=== PATIENT | male | born 1990 | race Caucasian/White ===

== ENCOUNTER 2019-03-09 01:37 | Inpatient (IN) | payer MEDICAID, SELFPAY ==
[2019-03-09 01:40] VITALS: BP 100/59; PULSE 74; RESP 14; TEMP 36.7; O2SAT 98
[2019-03-09] MEDS: LORazepam 2 MG/ML VIAL (02:02)
[2019-03-09] MEDS: Haloperidol 5 MG/ML VIAL (02:03)
--- NOTE | 2019-03-09 02:04 | W.ED.GENAD ---
Discharge Plan Disposition Patient Disposition: [facility] INPATIENT Condition: Stable Discharge Details Chief Complaint: PsychEval Clinical Impression: Schizoid personality disorder Primary Care Provider: Cornel Valenzuela ED Provider: Hammad Sampson Home Meds and New Rx's Prescriptions: No Action No Known Home Meds RF: 0 Medical Decision Making <Feroz Espinoza MD - Last Filed: 03/09/19 21:00> Patient here for mental health evaluation. Per police mother reports history of schizophrenia but not on any treatment other than self medicates with marijuana. Tonight became agitated, violent, loud. Police were eventually able to get him here. He is calm but clearly delusional, paranoid, hallucinating. Unable to reason or have any meaningful conversation with the patient. Could not get him to agree to stay willingly. I did not wish to physically restrain him and risk further agitation/violence. I was eventually able to convince him after a long conversation and period of time to let us give him injections of Haldol and Ativan. He is now sleeping. Mental health has arrived and she will look through mental health records to see if they have had any contact with him previously. There is a record in our computer from 2013 where he was actually paralyzed and intubated in the field for agitated/combative behavior. Subsequently thought to likely be related to synthetic marijuana. We will get EKG and laboratory studies at some point. We will get him undressed and paper down. CPSO is present at this time. 3:00 -mental health reviewed the records. Further discussion with [place] police officers. Patient's baseline is apparently paranoid delusions. What was out of the ordinary tonight was the aggressive, violent behavior. Patient is currently sleeping after Haldol and Ativan. Will hold overnight for reevaluation by mental health in the morning as well as having his parents come in in the morning to see if he is back to his normal baseline. If we are able to get labs without further agitation will do so. If not he has had labs, MRI, EEG in the past which have been okay. 07:45 -patient continues to sleep with no issues. Mental health to return this morning. Hopefully will be back to baseline to go home with parents. Care signed over to Dr. Sampson. Medical Records Medical records reviewed: Yes I reviewed the patient's medical records. Lab Data Lab results reviewed: Yes I reviewed the patient's lab results. <Hammad Sampson MD - Last Filed: 03/09/19 19:15> Patient has remained calm during his stay here. He does have paranoid thoughts on my exam otherwise no neuro findings or other findings to suggest underlying medical process. he apparently has been more and more agitated and given his paranoia did not feel he could go home and learned he was so agitated last night that the only way his father could get him to stand down from possibly hurting his mother was to point a gun at the patient. I filed an EE as I don't feel he is safe for d/c. Pt remains calm, walking unassisted. Second cert done and EE stands. Spoke with Dr. King who accepts for admission until psych bed is found Medical Records Medical records reviewed: Yes I reviewed the patient's medical records. Lab Data Lab results reviewed: Yes I reviewed the patient's lab results. HPI <Feroz Espinoza MD - Last Filed: 03/09/19 21:00> General Mode of arrival: ambulatory. Date/Time Provider Initiated Documentation: 03/09/19 02:03. Limitations to Documentation: other (paranoid delusional). Information obtained by: police and old records reviewed. HPI Narrative: Patient is brought in by police for mental health evaluation. Patient by report has history of schizophrenia. However, he does not see anybody in mental health nor does he take medications. He lives with his mother in [place]. Tonight he became extremely agitated, aggressive, loud. She became scared and called the police. Police report that he had caused significant damage to the home. He was screaming loudly and talking about satellites, terrorism, [employer], [employer]. He reports that someone has been trying to kill his family for 4 years. He reports that someone has hacked to [employer] satellite is changed everybody's records. At one point during my interview with him he clearly was speaking to individuals not present and having a conversation with them. Per the police mother reports that he typically self medicates with marijuana. Related Data Home Medications Medication Instructions Recorded Confirmed Unknown [No Known Home Meds] 07/22/18 03/09/19 Allergies Allergy/AdvReac Type Severity Reaction Status Date / Time naldecon Allergy Intermediate unknown Uncoded 03/09/19 07:03 General Stated Complaint: PsychEval LAURIE: 2 Review of Systems <Feroz Espinoza MD - Last Filed: 03/09/19 21:00> Review of Systems Unobtainable due to mental condition PFS <Feroz Espinoza MD - Last Filed: 03/09/19 21:00> Family History Mother No problems noted. Father Heart disease a-fib Sister No problems noted. Brother No problems noted. Grandfather Heart disease Grandfather Stroke Grandmother Hyperlipidemia Grandmother No problems noted. Sister No problems noted. Brother No problems noted. Social History Smoking/Tobacco Use Status: Current-Occasional Drug use: Occasionally Substance use type: marijuana Do you feel safe at home: No Exam <Feroz Espinoza MD - Last Filed: 03/09/19 21:00> Narrative Exam Narrative: Const: Thin tall male in no physical distress. HEENT: NC/AT. Normal facial exam. Neck: Supple. Trachea midline. Lungs: Normal respiratory effort. Neuro: Awake and alert, knows who he is and where he is. CN grossly in tact. No focal deficit. Ext: No C/C/E. Skin: Warm and dry without rash. Psych: Patient is paranoid, delusional, speaking and interacting with people not present. Continuously repeats that he needs to speak to higher ups, requesting [facility], [employer], [employer]. Course <Feroz Espinoza MD - Last Filed: 03/09/19 21:00> Respiratory Effort 03/09/19 01:40 Sign Out <Feroz Espinoza MD - Last Filed: 03/09/19 21:00> Sign Out Data: Sign Out Comment: pending eval by mental health Last updated by Feroz Espinoza MD at 03/09/19 07:48
--- NOTE | 2019-03-09 03:43 | CMSP_ITS ---
- If Service Date Differs Date of service: 03/09/19 Time of Service: 03:44 Care Management Safety Plan Jose is a 28 year old man brought to the ED by police . He is known to have schizophrenia, untreated except for self medication with marijuana.Jose's mother called the police when he became loud, agitated and violent. In the ED he was unable to engage in a meaningful conversation. He was found to be paranoid, delusional and having hallucinations. The ED physician was able to convince him to allow injections of Haldol and Ativan and he fell asleep. He has a CPSO with him. [facility] Crisis was called in to see patient but could not evaluate him because he was asleep. They will return in the morning to assess him. His mother will also be asked to come in the morning to see if he has returned to baseline. CM will respond to ED to assess patient after patient has been medically cleared and assessed by screener. If screener deems patient meets criteria for psychiatric stabilization CM will facilitate interdepartmental huddle with [facility] screener for safety planning considerations and meet with patient to review [facility] policy and safety plan, establish individual wishes for treatment and maintain patient rights. In the interim; please note safety plan below to guide patient care while awaiting further assessment in the ED. SAFETY PLAN: 1. Will remain on suicide precautions and in paper clothes. 2. Will remain in room under direct supervision of one-on-one staff at all times provided by VICENTE, TIN PLATER home advisor. 3. May have paper cups, plates, finger foods as well as a cardboard spoon with which to eat meals. 4. Follow [facility] Management of the Admitted Behavioral Health Patient policy. 5. Comfort bath system only. 6. No personal belongings 7. Mother may visit in the morning. 8. Phone contact limited to Mother. 9. Due to VOLUNTARY status, if patient wishes to leave [facility], the [facility] side door worker must be contacted to re-evaluate patient prior to patient exiting the building. If deemed appropriate for inpatient psychiatric care, safety plan will be established with patient, and care team, to adhere to patient goals, identify restrictions based on behavioral status, address nutrition, and determine allowed personal belongings, tools for hygiene and personal care. As well plan will determine level of activity including ambulation, level of supervision, visitors, and determine privileges based on level of acuity, behaviors and level of engagement by patient.
--- NOTE | 2019-03-09 09:07 | NUR.NOTE ---
Nursing Note: Report received from Shelby Ku RN at this time. Care assumed.
--- NOTE | 2019-03-09 09:54 | NUR.NOTE ---
Nursing Note: Pt consented for lab work, drawn by this nurse without incident.
[2019-03-09 10:04] LABS: Abs Immature Grans 0.01 k/cumm (0.0-0.09); Absolute Basophil Count 0.07 k/cumm (0.0-0.2); Absolute Eosinophil Count 0.54 k/cumm (0.0-0.7); Absolute Monocyte Count 0.65 k/cumm (0.11-0.7); Absolute Neutrophil Count 4.22 k/cumm (1.2-6.7); Basophils % 0.9; Eosinophils % 7.2; HCT 48.7 % (40.0-50.0); HGB 16.3 g/dL (13.5-17.5); Immature Grans % 0.1; Lymphocytes % 26.7; Mean Corp. HGB Concentration 33.5 g/dL (32.0-36.0); Mean Corpuscular Hemoglobin 30.5 pg (27.0-33.0); Mean Corpuscular Volume 91.2 fL (80-95); Mean Platelet Volume 10.3 fL (8.0-11.0); Monocytes % 8.7; Neutrophils % 56.4; Platelet Count 194 x1000/uL (130-400); RBC 5.34 m/cumm (4.50-6.00); White Blood Cell Count 7.49 k/cumm (4.4-10.8)
[2019-03-09 10:18] LABS: Bilirubin Negative (Negative); Blood Negative (Negative); Clarity Clear (Clear); Glucose Negative (Negative); Ketones Negative (Negative); Leukocyte Esterase Negative (Negative); Nitrite Negative (Negative); Specific Gravity 1.025 (1.005-1.025); Urobilinogen 0.2 EU/dL (Up TO 0.2)
[2019-03-09 10:20] LABS: Salicylate 3.4 mg/dL (2.8-20.0)
[2019-03-09 10:23] LABS: ALT 28 U/L (16-63); AST 31 U/L (15-37); Albumin 3.4 g/dL (3.4-5.0); Alkaline Phosphatase 73 U/L (46-116); Anion Gap 8.7 mmol/L (3-11); BUN 19 mg/dL (7-18); Bilirubin, Total 0.3 mg/dL (0.2-1.0); CO2 27.3 mmol/L (21.0-32.0); CREATININE 0.82 mg/dL (0.70-1.30); Calcium 8.7 mg/dL (8.5-10.1); Chloride 107 mmol/L (98-107); Glucose 94 mg/dL (70-100); Potassium 4.1 mmol/L (3.5-5.1); Sodium 143 mmol/L (136-145); TSH (W/Ref FT4) 1.31 uIU/mL (0.36-3.74); Total Protein 6.7 g/dL (6.4-8.2)
[2019-03-09 10:28] LABS: Acetaminophen < 2 ug/mL (10-30)
[2019-03-09 10:35] LABS: ETHANOL BLOOD < 3.0 mg/dL (<3)
[2019-03-09 10:36] LABS: *AMPHETAMINES SCREEN URINE Negative (Negative); *BARBITURATES SCREEN URINE Negative (Negative); *BENZODIAZEPINES SCREEN URINE Negative (Negative); Cannabinoids THC POSITIVE (Negative); Cocaine Screen,Urine Negative (Negative); METHADONE URINE SCREEN Negative (Negative); OPIATES URINE SCREEN Negative (Negative)
[2019-03-09 10:37] LABS: Tricyclic Antidepressants Negative (Negative)
--- NOTE | 2019-03-09 11:44 | PDOC.MHCN_ITS ---
Date of service: 03/09/19 Time of Service: 11:45 Mental Health Crisis Note Presenting Issue How did you arrive at the ED and why did you come: Police bring patient to the ED after he becomes highly agitated and aggressive at home. Precipitating Factors Patient denies current SI and HI but the question has to be repeated several times before he answers by shaking his head no. He is able to say that he is at the hospital and that police brought him here but cannot say why he is here. He shares his belief that people on satellites are watching him. Disposition BEHAVIOR: Uncooperative - either blankly stares at me and does not answer questions asked of him or closes his eyes and ignores the questions. EYE CONTACT: Poor. MOOD: Reports his mood as ok. AFFECT: Flat, paranoid. APPETITE: Unknown. SLEEP(trouble falling/staying asleep: Mother reports that he goes 24 to 48 hours without sleep, then sleeps for 18+ hours. Plan Patient is placed on EE status. There are no available beds at this time, so he will remain at [facility] while [facility] continues to seek placement. Dr. Moralez is consulted with this plan and he is in agreement. Signature Clinician's Name/Title: Jessica Jim BA, [facility] Ship'S Captain
--- NOTE | 2019-03-09 11:59 | NUR.NOTE ---
Nursing Note: Food tray ordered for lunch, precaution tray. Participated in huddle. Please see CM notes for details.
--- NOTE | 2019-03-09 12:36 | NUR.NOTE ---
Nursing Note: Attempted to call pt's mother (allowed per care plan) as requested by pt. Assisted calling number provided on pt's chart, no answer x 2 calls. Pt states he wants to leave. Pt aware that the decision is not within this nurse's power, and seems to accept that. Pt acknowledges an understanding that he is here for mental health evaluation and that the process can be lengthy. Pt declines offered PO lorazepam in calm and reasonable manner. Pt eats approx 1/4 of lunch provided and chooses to return to bed. Pt also offered hygiene opportunity and change of clothes, pt declines. This nurse called 's office extension to verify that pt had been wanded overnight for sharp/metal objects. states this occurred at approx 0230 according to log.
[2019-03-09 14:32] VITALS: BP 102/66; PULSE 66; RESP 16; TEMP 36.4; O2SAT 98
--- NOTE | 2019-03-09 14:37 | CMPROGNOTE_ITS ---
- If Service Date Differs Date of service: 03/09/19 Time of Service: 14:37 Care Management Progress Note Jose is a 28 year old man brought to the ED by police . He is known to have schizophrenia, untreated except for self medication with marijuana.Jose's mother called the police when he became loud, agitated and violent. In the ED he was unable to engage in a meaningful conversation. He was found to be paranoid, delusional and having hallucinations. The ED physician was able to convince him to allow injections of Haldol and Ativan and he fell asleep. He has a CPSO with him. [facility] Crisis was called in to see patient but could not evaluate him because he was asleep. They returned this morning and an EE was completed. Jose remains in the Emergency Department. He slept most of the day per ED staff. He woke up a few times and was cooperative and calm. Shortly before 6 pm, Jose woke up and became more agitated. He was asking for his shoes and appeared to be seeking an exit. A second certification was completed at 181. Jose will remain at [facility] in Involuntary status. Per MD conducting the 2nd certification, Jose is psychotic and delusional and is experiencing auditory hallucinations.He did not state that he wanted to hurt himself or others, however because of the degree of his acute paranoid psychosis, remains a risk to self and others. INVOLUNTARY FOR INPATIENT PSYCHIATRIC STABILIZATION. Patient is unable to demonstrate appropriate coping and communication skills and is unable to engage in meaningful conversation. . Safety plan has been established with patient and care team, to adhere to p atient goals, identify restrictions based on behavioral status, address nutrition, and determine allowed personal belongings, tools for hygiene and personal care. Determine level of activity including ambulation, level of supervision, visitors, and determine privileges based on behaviors and level of engagement by patient. SAFETY PLAN: 1. Will remain on suicide precautions. In Paper Clothes 2. Will remain in room under direct supervision of one-on-one staff at all times provided by CPSO; VICENTE, LISBETH woodworking machine setter. 3. May have paper cups, plates, finger foods as well as a metal spoon with which to eat meals. [facility] staff will be responsible for accounting of utensils after meals. 4. Follow [facility] Management of the Admitted Behavioral Health Patient policy. 5. Comfort bath system only. 6. No personal belongings 7. Visitors- Parents and brother may visit at the discretion of nursing staff. 8. Activities: May watch TV when available. 9. Bathroom privileges with CPSO in attendance 10. Phone:parents and brother at nursing discretion. Patient is currently involuntarily at [facility] and seeking inpatient admission when a bed becomes available. [facility] Frontline Respiratory Therapy Technician will continue seeking placement. Please contact the Veterinary Practice Manager Integration Technician ([phone]) and [facility] Respiratory Therapy Technician ([phone]) for any needed changes in the Safety Plan. Safety p shell has been provided to interdepartmental care team.
--- NOTE | 2019-03-09 15:41 | NUR.NOTE ---
Nursing Note: Per care management, second cert should be done between 1730 and 1830 chang. aware.
--- NOTE | 2019-03-09 18:47 | NUR.NOTE ---
Nursing Note: 1814 late entry: during meditech code black downtime: Second cert began at 1814, pt assisted with laptop by post anesthesia care unit nurse.
--- NOTE | 2019-03-09 19:56 | CMSP_ITS ---
- If Service Date Differs Date of service: 03/09/19 Time of Service: 19:56 Care Management Safety Plan INVOLUNTARY FOR INPATIENT PSYCHIATRIC STABILIZATION. Patient is unable to demonstrate appropriate coping and communication skills and is unable to engage in meaningful conversation. . Safety plan has been established with patient and care team, to adhere to patient goals, identify restrictions based on behavioral status, address nutrition, and determine allowed personal belongings, tools for hygiene and personal care. Determine level of activity including ambulation, level of supervision, visitors, and determine privileges based on behaviors and level of engagement by patient. SAFETY PLAN: 1. Will remain on suicide precautions. In Paper Clothes 2. Will remain in room under direct supervision of one-on-one staff at all times provided by CPSO; VICENTE, E TAILER laborer pole crew. 3. May have paper cups, plates, finger foods as well as a metal spoon with which to eat meals. [facility] staff will be responsible for accounting of utensils after meals. 4. Follow [facility] Management of the Admitted Behavioral Health Patient policy. 5. Comfort bath system only. 6. No personal belongings 7. Visitors- Parents and brother may visit at the discretion of nursing staff. 8. Activities: May watch TV when available. 9. Bathroom privileges with CPSO in attendance 10. Phone:parents and brother at nursing discretion. Patient is currently involuntarily at [facility] and seeking inpatient admission when a bed becomes available. [facility] Frontline Planning Engineer will continue seeking placement. Please contact the Consolidator Printed Circuit Board Designer ([phone]) and [facility] Planning Engineer ([phone]) for any needed changes in the Safety Plan. Safety plan has been provided to interdepartmental care team.
--- NOTE | 2019-03-09 20:01 | NUR.NOTE ---
Nursing Note: Report given to Arline MARES. Bed to be ready by approx 2029. Report given early to ensure continuity of care. Care transferred to Awilda Haro RN.
[2019-03-09 21:14] VITALS: BP 124/74; PULSE 61; RESP 18; TEMP 37; O2SAT 95
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
--- NOTE | 2019-03-10 00:23 | NUR.NOTE ---
Patient admitted to the med-surg unit with know history of schizoid personality disorder. Pt was brought to the emergency room by the [facility] police because he thinks that his country is killing people and he wants to talk to the [place] pwople. Parents gave information in the ER that pt tried to kick their bedroom door and they had to locked themselves in the bedroom for safety. Pt was also stating that the government is watching him through their satellites. Pt parents informed the police that he's self medicating with marijuana. He was willing to be assessed, also state he is hearing many voices in his head but was not willing to share what the voices were saying to him. He denies having any suicidal ideation or any plans of hurting anyone. He was made comfortable in bed and he requested for the lights to be turned off because he is feeling very tired. Patient is a very poor historian at this time.
--- NOTE | 2019-03-10 09:40 | CMSP_ITS ---
Care Management Safety Plan INVOLUNTARY FOR INPATIENT PSYCHIATRIC STABILIZATION. Per report, Jose is more verbal this morning. He is describing disturbing electronic stimuli/communication and identifies this happening through electronic devices such as the television and equipment. He is eating, taking meds appropriately and engaging verbally. He is seen pacing around the room and speaking out loud when alone. He has slept often throughout his stay thus far as well. Safety plan has been established with patient and care team, to adhere to patient goals, identify restrictions based on behavioral status, address nutrition, and determine allowed personal belongings, tools for hygiene and personal care. Determine level of activity including ambulation, level of supervision, visitors, and determine privileges based on behaviors and level of engagement by patient. Huddle participants included SUZAN Negrete, Jessica, JUAN JOSE, Maricruz SAFETY PLAN: 1. Will remain on suicide precautions. Permitted to wear his own clothes. 2. Will remain in room under direct supervision of one-on-one staff at all times provided by [employer]; VICENTE, BEHAVIORAL HEALTH THERAPIST neuroscience director na. 3. May have paper cups, plates, finger foods. 4. Follow [facility] Management of the Admitted Behavioral Health Patient policy. 5. Comfort bath system, able to use shower room with escort at RN discretion . 6. No personal belongings permitted at this time. 7. Visitors- limited to parents and brother at discretion of nursing staff. 8. Activities: permitted television if he requests-at RN discretion due to electronic devices previously causing escalation. 9. Phone: parents and brother at RN discretion. Patient is currently involuntarily at [facility] and seeking inpatient admission when a bed becomes available. [facility] Frontline Chain Forming Machine Operator will continue seeking placement. Please contact the Document Improvement Specialist Business Dean ([phone]) and [facility] Chain Forming Machine Operator ([phone]) for any needed changes in the Safety Plan. Safety plan has been provided to interdepartmental care team.
--- NOTE | 2019-03-10 09:42 | CMPROGNOTE_ITS ---
Care Management Progress Note 0994 JUAN JOSE Lopez and Chavo Gravity Prospecting Observer from [facility] arrived to see Jose. Referrals were faxed to [facility] and Eric at [email or web address] request. CM contacted BR: [phone], admissions reported at 1309 that referral was received and was still currently under review. [facility] [phone]-Raphael stated Dr. Hernandez was currently reviewing and a determination had not yet been made. JUAN JOSE Lopez [facility] called to report both facilities were reviewing and [facility] would provide updates when available.
--- NOTE | 2019-03-10 09:42 | PDOC.CMPRO ---
Care Management Progress Note 0955 JUAN JOSE Lopez and Chavo Director Of Student Affairs from [facility] arrived to see Jose. Referrals were faxed to [facility] and Eric at [email or web address] request. CM contacted BR: [phone], admissions reported at 1309 that referral was received and was still currently under review. [facility] [phone]-Raphael stated Dr. Hernandez was currently reviewing and a determination had not yet been made. JUAN JOSE Lopez [facility] called to report both facilities were reviewing and [facility] would provide updates when available.
--- NOTE | 2019-03-10 10:44 | PDOC.MHPN2 ---
Date of service: 03/10/19 Time of Service: 10:45 Mental Health Progress Note Progress Note: Presenting Issue: Jose remains at [facility] on involuntary status. He first arrived at the hospital during the flight service agent hours of 03/09/19 after becoming highly agitated and aggressive at home. Precipitating Factors: Jose is reported by family members to have a diagnosis of schizophrenia. He, however, is not currently on any medications and is not being followed by a psychiatrist. Jose has a history of drug use and reportedly self-medicates with marijuana. He is currently experiencing delusions and paranoia, believing that satellite people are watching him. He is also having auditory hallucinations and is witnessed responding to internal stimuli. Since being at [facility], Jose has been calm and cooperative. He has been sleeping and eating well and is agreeable to taking medication. Disposition * Behavior: Cooperative. *Eye Contact: Poor. Jose is constantly moving around his hospital room and is unable to maintain eye contact. *Mood: Guarded, suspicious. *Affect: Paranoid. *Appetite: Good. *Sleep(troubel falling/staying asleep): Good. Plan(please elaborate and include that physician is consulted with plan and/or placement): Plan is for Jose to remain at [facility] on EE status while [facility] continues to seek a placement for him. Referrals are faxed to [facility] and [facility] today. Clinician's Name , Title, and Signature: Jessica Jim BA, [facility], [facility] Concierge Receptionist Make sure that you are photocopying and submitting this to [facility] records Dept. to be scanned into chart.
[2019-03-10 15:56] VITALS: BP 131/74; PULSE 74; RESP 17; TEMP 36.7; O2SAT 97
--- NOTE | 2019-03-10 16:16 | PGE_ITS ---
Date of Service Date of service: 03/10/19 Time of Service: 16:16 Assessment and Plan (1) Schizophrenia, acute: Start date: 03/10/19 Start time: 16:19 Current visit: Yes Status: Acute Slept all night, cooperative at this time. Awaiting a bed. 1:1 sitter has not required haldol or ativan. Continue to monitor and find placement. Subjective Patient reports: other Interval history since last seen: Cooperative but not making sense, when asked questions just laughs without cause. When asked why laughing states has nothing do to with why I am here just the president and HARINDER; and continues to laugh. M akes very little eye contact and speaks very quietly. Exam Const General: cooperative and No well groomed Orientation: other (psychotic break) Limitations: behavioral limitations Neck Neck: normal visual inspection Lymphatic: no lymphadenopathy noted Resp Effort & Inspection: normal respiratory effort Auscultation: clear to auscultation bilaterally Cardio Jugular venous pressure: no JVD Palpation: normal PMI Rate: regular rate Rhythm: regular rhythm Heart Sounds: S1 normal and S2 normal GI Inspection: normal to inspection Palpation: soft Percussion: normal to percussion Auscultation: normal bowel sounds Back/Spine/Pelvis Back: no CVA tenderness Skin General skin exam: no rashes or lesions noted Rashes: no rashes Neuro General: other Psych Appearance: disheveled Mental Status: other Mood: other Thought Process: flight of ideas and illogical Thought Content: delusions Insight: poor Judgment: poor Objective Objective Clinical Data: Vital Signs Temperature 36.7 C 03/10/19 15:56 Temperature Source Tympanic 03/10/19 15:56 Pulse 74 03/10/19 15:56 Pulse Rhythm Regular 03/10/19 09:10 Respiratory Rate 17 03/10/19 15:56 Respiratory Effort 03/10/19 09:10 Respiratory Depth Normal 03/10/19 09:10 Respiratory Pattern Normal 03/10/19 09:10 Blood Pressure 131/74 03/10/19 15:56 Pulse Oximetry 97 03/10/19 15:56 Oxygen Delivery Method Room Air 03/10/19 15:56 Oxygen Flow Rate 0 03/10/19 15:56 Pain Level 0 03/09/19 14:32 Laboratory Results WBC 7.49 k/cumm (4.4-10.8) 03/09/19 09:54 RBC 5.34 m/cumm (4.50-6.00) 03/09/19 09:54 Hgb 16.3 g/dL (13.5-17.5) 03/09/19 09:54 Hct 48.7 % (40.0-50.0) 03/09/19 09:54 MCV 91.2 fL (80-95) 03/09/19 09:54 MCH 30.5 pg (27.0-33.0) 03/09/19 09:54 MCHC 33.5 g/dL (32.0-36.0) 03/09/19 09:54 RDW 13.0 % (11.8-14.1) 03/09/19 09:54 Plt Count 194 x1000/uL (130-400) 03/09/19 09:54 MPV 10.3 fL (8.0-11.0) 03/09/19 09:54 Immature Gran % 0.1 03/09/19 09:54 56.4 03/09/19 09:54 Cancelled 03/09/19 02:03 26.7 03/09/19 09:54 Atypical Lymphs % Cancelled 03/09/19 02:03 8.7 03/09/19 09:54 7.2 03/09/19 09:54 0.9 03/09/19 09:54 Cancelled 03/09/19 02:03 Cancelled 03/09/19 02:03 Cancelled 03/09/19 02:03 Absolute Neutrophils 4.22 k/cumm (1.2-6.7) 03/09/19 09:54 Absolute Lymphocytes 2.00 k/cumm (1.2-3.4) 03/09/19 09:54 Absolute Monocytes 0.65 k/cumm (0.11-0.7) 03/09/19 09:54 Absolute Eosinophils 0.54 k/cumm (0.0-0.7) 03/09/19 09:54 Absolute Basophils 0.07 k/cumm (0.0-0.2) 03/09/19 09:54 Nucleated RBCs Cancelled 03/09/19 02:03 Cancelled 03/09/19 02:03 Cancelled 03/09/19 02:03 RBC Morphology Cancelled 03/09/19 02:03 Cancelled 03/09/19 02:03 Cancelled 03/09/19 02:03 Cancelled 03/09/19 02:03 Cancelled 03/09/19 02:03 Cancelled 03/09/19 02:03 Cancelled 03/09/19 02:03 Cancelled 03/09/19 02:03 Cancelled 03/09/19 02:03 Cancelled 03/09/19 02:03 Cancelled 03/09/19 02:03 Cancelled 03/09/19 02:03 Cancelled 03/09/19 02:03 Cancelled 03/09/19 02:03 Cancelled 03/09/19 02:03 Acanthocytes (Spur) Cancelled 03/09/19 02:03 Cancelled 03/09/19 02:03 Sodium 143 mmol/L (136-145) 03/09/19 09:54 Potassium 4.1 mmol/L (3.5-5.1) 03/09/19 09:54 Chloride 107 mmol/L (98-107) 03/09/19 09:54 Carbon Dioxide 27.3 mmol/L (21.0-32.0) 03/09/19 09:54 8.7 mmol/L (3-11) 03/09/19 09:54 BUN 19 mg/dL (7-18) H 03/09/19 09:54 0.82 mg/dL (0.70-1.30) 03/09/19 09:54 >= 60.00 (mL/min/1.73m2) 03/09/19 09:54 Glucose 94 mg/dL (70-100) 03/09/19 09:54 Calcium 8.7 mg/dL (8.5-10.1) 03/09/19 09:54 0.3 mg/dL (0.2-1.0) 03/09/19 09:54 AST 31 U/L (15-37) 03/09/19 09:54 ALT 28 U/L (16-63) 03/09/19 09:54 73 U/L (46-116) 03/09/19 09:54 6.7 g/dL (6.4-8.2) 03/09/19 09:54 3.4 g/dL (3.4-5.0) 03/09/19 09:54 TSH 1.31 uIU/mL (0.36-3.74) 03/09/19 09:54 Yellow (Yellow) 03/09/19 10:10 Clear (Clear) 03/09/19 10:10 6.0 (5-8) 03/09/19 10:10 Ur Specific [place] 1.025 (1.005-1.025) 03/09/19 10:10 Negative mg/dL (Negative) 03/09/19 10:10 Negative mg/dL (Negative) 03/09/19 10:10 Negative (Negative) 03/09/19 10:10 Negative (Negative) 03/09/19 10:10 Negative (Negative) 03/09/19 10:10 0.2 EU/dL (Up TO 0.2) 03/09/19 10:10 Ur Leukocyte Esterase Negative (Negative) 03/09/19 10:10 Negative mg/dL (Negative) 03/09/19 10:10 Salicylates 3.4 mg/dL (2.8-20.0) 03/09/19 09:54 Negative (Negative) 03/09/19 10:10 Negative (Negative) 03/09/19 10:10 Acetaminophen < 2 ug/mL (10-30) L 03/09/19 09:54 Ur Barbiturates Screen Negative (Negative) 03/09/19 10:10 Ur Tricyclics Screen Negative (Negative) 03/09/19 10:10 Ur Amphetamines Screen Negative (Negative) 03/09/19 10:10 U Benzodiazepines Scrn Negative (Negative) 03/09/19 10:10 Negative (Negative) 03/09/19 10:10 Ur THC Screen Positive (Negative) 03/09/19 10:10 Ethyl Alcohol < 3.0 mg/dL (<3) 03/09/19 09:54
[2019-03-11 06:42] VITALS: BP 117/68; PULSE 53; RESP 18; TEMP 36.7; O2SAT 98
--- NOTE | 2019-03-11 12:11 | W.PM.PROGNOT ---
Date of Service Date of service: 03/11/19 Time of Service: 12:11 Assessment and Plan (1) Schizophrenia, acute: Start date: 03/11/19 Start time: 12:12 Current visit: Yes Status: Acute Continues to avoid eye contact. Pacing around room smiling. Laughing when asked questions. Awaiting bed placement at this time. 1:1 sitter. (2) DVT prophylaxis: Start date: 03/11/19 Start time: 12:11 Current visit: Yes Status: Acute Not indicated in a 28 y.o M. Ambulatory around room. Subjective Patient reports: no new complaints Interval history since last seen: Still awaiting bed placement at this time. Exam Const General: cooperative and No well groomed Orientation: other (psychotic break) Limitations: behavioral limitations Neck Neck: normal visual inspection Lymphatic: no lymphadenopathy noted Resp Effort & Inspection: normal respiratory effort Auscultation: clear to auscultation bilaterally Cardio Jugular venous pressure: no JVD Palpation: normal PMI Rate: regular rate Rhythm: regular rhythm Heart Sounds: S1 normal and S2 normal GI Inspection: normal to inspection Palpation: soft Percussion: normal to percussion Auscultation: normal bowel sounds Back/Spine/Pelvis Back: no CVA tenderness Skin General skin exam: no rashes or lesions noted Rashes: no rashes Neuro General: other Psych Appearance: disheveled Mental Status: other Mood: other Thought Process: flight of ideas and illogical Thought Content: delusions Insight: poor Judgment: poor Objective Objective Clinical Data: Vital Signs Temperature 36.7 C 03/11/19 06:42 Temperature Source Skin 03/11/19 06:42 Pulse 53 L 03/11/19 06:42 Pulse Rhythm Regular 03/11/19 08:11 Respiratory Rate 18 03/11/19 06:42 Respiratory Effort 03/11/19 08:11 Respiratory Depth Normal 03/11/19 08:11 Respiratory Pattern Normal 03/11/19 08:11 Blood Pressure 117/68 03/11/19 06:42 Pulse Oximetry 98 03/11/19 06:42 Oxygen Delivery Method Room Air 03/11/19 06:42 Oxygen Flow Rate 0 03/11/19 06:42 Pain Level 0 03/11/19 08:11 Comment 03/11/19 06:42 Intake & Output 03/10/19 03/11/19 03/11/19 23:59 11:59 23:59 Intake Total 440 / 440 240 / 240 Balance 440 / 440 240 / 240 Intake: Oral 440 / 440 240 / 240 Other: Voiding Methods Toilet Laboratory Results WBC 7.49 k/cumm (4.4-10.8) 03/09/19 09:54 RBC 5.34 m/cumm (4.50-6.00) 03/09/19 09:54 Hgb 16.3 g/dL (13.5-17.5) 03/09/19 09:54 Hct 48.7 % (40.0-50.0) 03/09/19 09:54 MCV 91.2 fL (80-95) 03/09/19 09:54 MCH 30.5 pg (27.0-33.0) 03/09/19 09:54 MCHC 33.5 g/dL (32.0-36.0) 03/09/19 09:54 RDW 13.0 % (11.8-14.1) 03/09/19 09:54 Plt Count 194 x1000/uL (130-400) 03/09/19 09:54 MPV 10.3 fL (8.0-11.0) 03/09/19 09:54 Immature Gran % 0.1 03/09/19 09:54 56.4 03/09/19 09:54 Cancelled 03/09/19 02:03 26.7 03/09/19 09:54 Atypical Lymphs % Cancelled 03/09/19 02:03 8.7 03/09/19 09:54 7.2 03/09/19 09:54 0.9 03/09/19 09:54 Cancelled 03/09/19 02:03 Cancelled 03/09/19 02:03 Cancelled 03/09/19 02:03 Absolute Neutrophils 4.22 k/cumm (1.2-6.7) 03/09/19 09:54 Absolute Lymphocytes 2.00 k/cumm (1.2-3.4) 03/09/19 09:54 Absolute Monocytes 0.65 k/cumm (0.11-0.7) 03/09/19 09:54 Absolute Eosinophils 0.54 k/cumm (0.0-0.7) 03/09/19 09:54 Absolute Basophils 0.07 k/cumm (0.0-0.2) 03/09/19 09:54 Nucleated RBCs Cancelled 03/09/19 02:03 Cancelled 03/09/19 02:03 Cancelled 03/09/19 02:03 RBC Morphology Cancelled 03/09/19 02:03 Cancelled 03/09/19 02:03 Cancelled 03/09/19 02:03 Cancelled 03/09/19 02:03 Cancelled 03/09/19 02:03 Cancelled 03/09/19 02:03 Cancelled 03/09/19 02:03 Cancelled 03/09/19 02:03 Cancelled 03/09/19 02:03 Cancelled 03/09/19 02:03 Cancelled 03/09/19 02:03 Cancelled 03/09/19 02:03 Cancelled 03/09/19 02:03 Cancelled 03/09/19 02:03 Cancelled 03/09/19 02:03 Acanthocytes (Spur) Cancelled 03/09/19 02:03 Cancelled 03/09/19 02:03 Sodium 143 mmol/L (136-145) 03/09/19 09:54 Potassium 4.1 mmol/L (3.5-5.1) 03/09/19 09:54 Chloride 107 mmol/L (98-107) 03/09/19 09:54 Carbon Dioxide 27.3 mmol/L (21.0-32.0) 03/09/19 09:54 8.7 mmol/L (3-11) 03/09/19 09:54 BUN 19 mg/dL (7-18) H 03/09/19 09:54 0.82 mg/dL (0.70-1.30) 03/09/19 09:54 >= 60.00 (mL/min/1.73m2) 03/09/19 09:54 Glucose 94 mg/dL (70-100) 03/09/19 09:54 Calcium 8.7 mg/dL (8.5-10.1) 03/09/19 09:54 0.3 mg/dL (0.2-1.0) 03/09/19 09:54 AST 31 U/L (15-37) 03/09/19 09:54 ALT 28 U/L (16-63) 03/09/19 09:54 73 U/L (46-116) 03/09/19 09:54 6.7 g/dL (6.4-8.2) 03/09/19 09:54 3.4 g/dL (3.4-5.0) 03/09/19 09:54 TSH 1.31 uIU/mL (0.36-3.74) 03/09/19 09:54 Yellow (Yellow) 03/09/19 10:10 Clear (Clear) 03/09/19 10:10 6.0 (5-8) 03/09/19 10:10 Ur Specific [place] 1.025 (1.005-1.025) 03/09/19 10:10 Negative mg/dL (Negative) 03/09/19 10:10 Negative mg/dL (Negative) 03/09/19 10:10 Negative (Negative) 03/09/19 10:10 Negative (Negative) 03/09/19 10:10 Negative (Negative) 03/09/19 10:10 0.2 EU/dL (Up TO 0.2) 03/09/19 10:10 Ur Leukocyte Esterase Negative (Negative) 03/09/19 10:10 Negative mg/dL (Negative) 03/09/19 10:10 Salicylates 3.4 mg/dL (2.8-20.0) 03/09/19 09:54 Negative (Negative) 03/09/19 10:10 Negative (Negative) 03/09/19 10:10 Acetaminophen < 2 ug/mL (10-30) L 03/09/19 09:54 Ur Barbiturates Screen Negative (Negative) 03/09/19 10:10 Ur Tricyclics Screen Negative (Negative) 03/09/19 10:10 Ur Amphetamines Screen Negative (Negative) 03/09/19 10:10 U Benzodiazepines Scrn Negative (Negative) 03/09/19 10:10 Negative (Negative) 03/09/19 10:10 Ur THC Screen Positive (Negative) 03/09/19 10:10 Ethyl Alcohol < 3.0 mg/dL (<3) 03/09/19 09:54
--- NOTE | 2019-03-11 13:50 | PDOC.MHPN2 ---
Date of service: 03/11/19 Time of Service: 13:50 Mental Health Progress Note Progress Note: Presenting Issue: Jose remains at [facility] on EE status awaiting a psych placement. Precipitating Factors: Jose experienced a psychotic break on Wednesday evening when he became highly agitated and aggressive towards his parents. Jose was subsequently transported to [facility] by police and was placed on involuntary status. Since being at the hospital, Jose has been calm and cooperative. When asked questions, he laughs inappropriately. He is interacting with staff but speaks very softly, makes little to no eye contact, and continues to experience auditory hallucinations and delusions. Jose denies SI/HI and says he would never hurt himself or anyone else but he told the state psychiatrist that he is getting messages from satellites that tell him to harm himself. Disposition * Behavior: Cooperative. *Eye Contact: Poor. *Mood: Reports feeling ok. *Affect: Paranoid. *Appetite: Good. *Sleep(troubel falling/staying asleep): Good. Plan(please elaborate and include that physician is consulted with plan and/or placement): Jose will remain at [facility] on involuntary status while [facility] continues to seek a placement for him. There are no available beds at this time. Clinician's Name , Title, and Signature: Jessica Jim BA, [facility], [facility] Patient Transporter Make sure that you are photocopying and submitting this to [facility] records Dept. to be scanned into chart.
[2019-03-11 16:06] VITALS: BP 128/75; PULSE 57; RESP 19; TEMP 36.5; O2SAT 96
--- NOTE | 2019-03-11 16:27 | CMPROGNOTE_ITS ---
- If Service Date Differs Date of service: 03/11/19 Time of Service: 16:27 Care Management Progress Note S/O: CM met with Jose he has been cooperative he did shower today and changed his clothes, per nurse he is eating and drinking. Jose continues to exhibit delusional behavior he reports he was on a secret mission at home that he cannot discuss. He laughs inappropriate and whispers to himself during interaction with CM. Jose does ask CM to clarify the plan for hospitalization. Jose does states his needs are being met, CM reassured him that he is safe from harm in his environment. CM spoke with both Jose's parents today, they brought in fresh clothing and CM reviewed the plan. Jose did provide permission to speak with his parents and brother with a signed HIPPA form. CM met with primary nurse, and mental health [facility] there is no change to the safety plan today. and [facility] continue to review referral and anticipate no bed available over the holiday weekend. CM reviewed with Nursing user support analyst supervisor and provided updates. A: Jose is a 28 year old male admitted for placement for psychiatric stabilization. Jose has a history of Schizophrenia, and depression. Jose lives with his parents Butch and Ned and has a brother Chet who are all supportive in his care. Jose does not currently receive supports from [facility] however would benefit from [facility] and assistance through [facility] to maintain stability. P: Jose was changed to inpatient today anticipate he will remain on involuntary status over the weekend and transfer to facility on Wednesday. Awaiting accepting facility confirmation. He will need to be transported down by Industrial Staff Nurse arranged by [facility] at time of discharge. Continue to follow the current safety plan no changes today. CM to continue to provide support to Jose while he remains at [facility].
--- NOTE | 2019-03-12 08:11 | CMSP_ITS ---
- If Service Date Differs Date of service: 03/12/19 Time of Service: 08:12 Care Management Safety Plan INVOLUNTARY FOR INPATIENT PSYCHIATRIC STABILIZATION. Per report Jose has been cooperative, he has showered, and changed his clothes. Safety plan has been established with patient and care team, to adhere to patient goals, identify restrictions based on behavioral status, address nutrition, and determine allowed personal belongings, tools for hygiene and personal care. Determine level of activity including ambulation, level of supervision, visitors, and determine privileges based on behaviors and level of engagement by patient. SAFETY PLAN: 03/12/19 1. Will remain on suicide/behavioral precautions. Permitted to wear his own clothes. 2. Will remain in room under direct supervision of one-on-one staff at all times provided by [employer]; VICENTE, FREELANCE PATTERNMAKER colorist formulator. 3. May have paper cups, plates, finger foods and snacks; he enjoys cookies, cheese sticks and milk. 4. Follow [facility] Management of the Admitted Behavioral Health Patient policy. 5. Comfort bath system, able to use shower room with escort at RN discretion . 6. No personal belongings permitted at this time with the exception of his clothing 7. Visitors- limited to parents Butch and Ned and brother Chet at discretion of nursing staff. 8. Activities: crayons, coloring books, and chalk for the blackboard permitted; television if he requests-at RN discretion due to electronic devices previously causing escalation. Jose does pace and is allowed to pace outside his room with the [employer] supervision and at the team discretion. Per his parents he walks frequently around town and the pacing is soothing to Jose. 9. Phone: parents and brother if Jose request. Patient is currently involuntarily at [facility] and seeking inpatient admission when a bed becomes available. [facility] Front line Operating System Programmer will continue seeking placement. Please contact the Cns Oracle Architect ([phone]) and [facility] Operating System Programmer ([phone]) for any needed changes in the Safety Plan. Safety plan has been provided to interdepartmental care team. P:Current bed status B[facility] and [facility] are evaluating the referral per facilities and [facility] anticipate no bed until Wednesday. When bed is available Jose will be transported via bore mill operator for plastic coordinated by [facility].
--- NOTE | 2019-03-12 11:44 | W.PM.PROGNOT ---
Date of Service Date of service: 03/12/19 Time of Service: 11:44 Assessment and Plan (1) Schizophrenia, acute: Start date: 03/12/19 Start time: 11:44 Current visit: Yes Status: Acute Behavior has not changed. He was cooperative. Today he was stacking his food and playing with plastic wrap crinkling it laughing without cause and avoiding eye contact. Bed possibly Wednesday. (2) DVT prophylaxis: Start date: 03/12/19 Start time: 11:45 Current visit: Yes Status: Acute Not indicated in a 28 y.o M. Ambulatory around room. Subjective Patient reports: no new complaints Interval history since last seen: Bed possibly wednesday Exam Const General: cooperative and No well groomed Orientation: other (psychotic break) Limitations: behavioral limitations Neck Neck: normal visual inspection Lymphatic: no lymphadenopathy noted Resp Effort & Inspection: normal respiratory effort Auscultation: clear to auscultation bilaterally Cardio Jugular venous pressure: no JVD Palpation: normal PMI Rate: regular rate Rhythm: regular rhythm Heart Sounds: S1 normal and S2 normal GI Inspection: normal to inspection Palpation: soft Percussion: normal to percussion Auscultation: normal bowel sounds Back/Spine/Pelvis Back: no CVA tenderness Skin General skin exam: no rashes or lesions noted Rashes: no rashes Neuro General: other Psych Appearance: disheveled Mental Status: other Mood: other Thought Process: flight of ideas and illogical Thought Content: delusions Insight: poor Judgment: poor Objective Objective Clinical Data: Vital Signs Temperature 36.5 C 03/11/19 16:06 Temperature Source Tympanic 03/11/19 16:06 Pulse 57 L 03/11/19 16:06 Pulse Rhythm Regular 03/11/19 20:00 Respiratory Rate 19 03/11/19 16:06 Respiratory Effort 03/11/19 20:00 Respiratory Depth Normal 03/11/19 20:00 Respiratory Pattern Normal 03/11/19 20:00 Blood Pressure 128/75 03/11/19 16:06 Pulse Oximetry 96 03/11/19 16:06 Oxygen Delivery Method Room Air 03/11/19 16:06 Oxygen Flow Rate 0 03/11/19 16:06 Pain Level 0 03/11/19 08:11 Comment 03/11/19 06:42 Intake & Output 03/11/19 03/11/19 03/12/19 11:59 23:59 11:59 Intake Total 240 / 240 1650 / 1650 Balance 240 / 240 1650 / 1650 Intake: Oral 240 / 240 1650 / 1650 Other: Comment patient uses toilet independently and uses it frequently patient uses toilet independently Voiding Methods Toilet Toilet Toilet Laboratory Results WBC 7.49 k/cumm (4.4-10.8) 03/09/19 09:54 RBC 5.34 m/cumm (4.50-6.00) 03/09/19 09:54 Hgb 16.3 g/dL (13.5-17.5) 03/09/19 09:54 Hct 48.7 % (40.0-50.0) 03/09/19 09:54 MCV 91.2 fL (80-95) 03/09/19 09:54 MCH 30.5 pg (27.0-33.0) 03/09/19 09:54 MCHC 33.5 g/dL (32.0-36.0) 03/09/19 09:54 RDW 13.0 % (11.8-14.1) 03/09/19 09:54 Plt Count 194 x1000/uL (130-400) 03/09/19 09:54 MPV 10.3 fL (8.0-11.0) 03/09/19 09:54 Immature Gran % 0.1 03/09/19 09:54 56.4 03/09/19 09:54 Cancelled 03/09/19 02:03 26.7 03/09/19 09:54 Atypical Lymphs % Cancelled 03/09/19 02:03 8.7 03/09/19 09:54 7.2 03/09/19 09:54 0.9 03/09/19 09:54 Cancelled 03/09/19 02:03 Cancelled 03/09/19 02:03 Cancelled 03/09/19 02:03 Absolute Neutrophils 4.22 k/cumm (1.2-6.7) 03/09/19 09:54 Absolute Lymphocytes 2.00 k/cumm (1.2-3.4) 03/09/19 09:54 Absolute Monocytes 0.65 k/cumm (0.11-0.7) 03/09/19 09:54 Absolute Eosinophils 0.54 k/cumm (0.0-0.7) 03/09/19 09:54 Absolute Basophils 0.07 k/cumm (0.0-0.2) 03/09/19 09:54 Nucleated RBCs Cancelled 03/09/19 02:03 Cancelled 03/09/19 02:03 Cancelled 03/09/19 02:03 RBC Morphology Cancelled 03/09/19 02:03 Cancelled 03/09/19 02:03 Cancelled 03/09/19 02:03 Cancelled 03/09/19 02:03 Cancelled 03/09/19 02:03 Cancelled 03/09/19 02:03 Cancelled 03/09/19 02:03 Cancelled 03/09/19 02:03 Cancelled 03/09/19 02:03 Cancelled 03/09/19 02:03 Cancelled 03/09/19 02:03 Cancelled 03/09/19 02:03 Cancelled 03/09/19 02:03 Cancelled 03/09/19 02:03 Cancelled 03/09/19 02:03 Acanthocytes (Spur) Cancelled 03/09/19 02:03 Cancelled 03/09/19 02:03 Sodium 143 mmol/L (136-145) 03/09/19 09:54 Potassium 4.1 mmol/L (3.5-5.1) 03/09/19 09:54 Chloride 107 mmol/L (98-107) 03/09/19 09:54 Carbon Dioxide 27.3 mmol/L (21.0-32.0) 03/09/19 09:54 8.7 mmol/L (3-11) 03/09/19 09:54 BUN 19 mg/dL (7-18) H 03/09/19 09:54 0.82 mg/dL (0.70-1.30) 03/09/19 09:54 >= 60.00 (mL/min/1.73m2) 03/09/19 09:54 Glucose 94 mg/dL (70-100) 03/09/19 09:54 Calcium 8.7 mg/dL (8.5-10.1) 03/09/19 09:54 0.3 mg/dL (0.2-1.0) 03/09/19 09:54 AST 31 U/L (15-37) 03/09/19 09:54 ALT 28 U/L (16-63) 03/09/19 09:54 73 U/L (46-116) 03/09/19 09:54 6.7 g/dL (6.4-8.2) 03/09/19 09:54 3.4 g/dL (3.4-5.0) 03/09/19 09:54 TSH 1.31 uIU/mL (0.36-3.74) 03/09/19 09:54 Yellow (Yellow) 03/09/19 10:10 Clear (Clear) 03/09/19 10:10 6.0 (5-8) 03/09/19 10:10 Ur Specific [place] 1.025 (1.005-1.025) 03/09/19 10:10 Negative mg/dL (Negative) 03/09/19 10:10 Negative mg/dL (Negative) 03/09/19 10:10 Negative (Negative) 03/09/19 10:10 Negative (Negative) 03/09/19 10:10 Negative (Negative) 03/09/19 10:10 0.2 EU/dL (Up TO 0.2) 03/09/19 10:10 Ur Leukocyte Esterase Negative (Negative) 03/09/19 10:10 Negative mg/dL (Negative) 03/09/19 10:10 Salicylates 3.4 mg/dL (2.8-20.0) 03/09/19 09:54 Negative (Negative) 03/09/19 10:10 Negative (Negative) 03/09/19 10:10 Acetaminophen < 2 ug/mL (10-30) L 03/09/19 09:54 Ur Barbiturates Screen Negative (Negative) 03/09/19 10:10 Ur Tricyclics Screen Negative (Negative) 03/09/19 10:10 Ur Amphetamines Screen Negative (Negative) 03/09/19 10:10 U Benzodiazepines Scrn Negative (Negative) 03/09/19 10:10 Negative (Negative) 03/09/19 10:10 Ur THC Screen Positive (Negative) 03/09/19 10:10 Ethyl Alcohol < 3.0 mg/dL (<3) 03/09/19 09:54
--- NOTE | 2019-03-12 11:47 | MHPN_ITS ---
Date of service: 03/12/19 Time of Service: 11:47 Mental Health Progress Note Progress Note: Presenting Issue: Jose remains at [facility] on involuntary status awaiting a psychiatric placement. Precipitating Factors: Jose was transported to [facility] by police during the tank house supervisor hours of 03/09/2019 after becoming agitated and aggressive at home. Since being at [facility], Jose has been appropriate. Today, he seems really sad and asks to go home. He interacts very little with me, answers some questions and ignores others. He denies suicidal ideation and shares that he is continuing to be bothered by satellite emissions. When advised that he will staying at [facility] until a psych bed can be secured for him, he stops interacting all together and just sits on the bed and stares at the floor. Disposition * Behavior: Appropriate. *Eye Contact: Poor. *Mood: Depressed. *Affect: Sad, guarded. *Appetite: Eating minimally. *Sleep(troubel falling/staying asleep): Good. Plan(please elaborate and include that physician is consulted with plan and/or placement): Plan is for Jose to remain at [facility] on involuntary status until a psych placement can be secured for him. [facility] accepts a referral for review today. Clinician's Name , Title, and Signature: Jessica Jim BA, [facility], [facility] Machine Sole Leveler Make sure that you are photocopying and submitting this to [facility] records Dept. to be scanned into chart.
--- NOTE | 2019-03-12 11:47 | PDOC.MHPN2 ---
Date of service: 03/12/19 Time of Service: 11:47 Mental Health Progress Note Progress Note: Presenting Issue: Jose remains at [facility] on involuntary status awaiting a psychiatric placement. Precipitating Factors: Jose was transported to [facility] by police during the manager shipping hours of 03/09/2019 after becoming agitated and aggressive at home. Since being at [facility], Jose has been appropriate. Today, he seems really sad and asks to go home. He interacts very little with me, answers some questions and ignores others. He denies suicidal ideation and shares that he is continuing to be bothered by satellite emissions. When advised that he will staying at [facility] until a psych bed can be secured for him, he stops interacting all together and just sits on the bed and stares at the floor. Disposition * Behavior: Appropriate. *Eye Contact: Poor. *Mood: Depressed. *Affect: Sad, guarded. *Appetite: Eating minimally. *Sleep(troubel falling/staying asleep): Good. Plan(please elaborate and include that physician is consulted with plan and/or placement): Plan is for Jose to remain at [facility] on involuntary status until a psych placement can be secured for him. [facility] accepts a referral for review today. Clinician's Name , Title, and Signature: Jessica Jim BA, [facility], [facility] Senior Coldfusion Developer Make sure that you are photocopying and submitting this to [facility] records Dept. to be scanned into chart.
--- NOTE | 2019-03-13 12:56 | W.PM.PROGNOT ---
Date of Service Date of service: 03/13/19 Time of Service: 12:56 Assessment and Plan (1) Schizophrenia, acute: Start date: 03/13/19 Start time: 12:57 Current visit: Yes Status: Acute Behavior has not changed. He was cooperative. Today he is sleeping when entering. Cooperative continues to laugh without cause and avoiding eye contact. Refused ativan last night. No uncooperative behaviors. Bed possibly Wednesday. (2) DVT prophylaxis: Start date: 03/13/19 Start time: 12:58 Current visit: Yes Status: Acute Not indicated in a 28 y.o M. Ambulatory around room. Subjective Patient reports: no new complaints Interval history since last seen: Sleeping this am. refused ativan last night. cooperative. Exam Const General: cooperative and No well groomed Orientation: other (psychotic break) Limitations: behavioral limitations Neck Neck: normal visual inspection Lymphatic: no lymphadenopathy noted Resp Effort & Inspection: normal respiratory effort Auscultation: clear to auscultation bilaterally Cardio Jugular venous pressure: no JVD Palpation: normal PMI Rate: regular rate Rhythm: regular rhythm Heart Sounds: S1 normal and S2 normal GI Inspection: normal to inspection Palpation: soft Percussion: normal to percussion Auscultation: normal bowel sounds Back/Spine/Pelvis Back: no CVA tenderness Skin General skin exam: no rashes or lesions noted Rashes: no rashes Neuro General: other Psych Appearance: disheveled Mental Status: other Mood: other Thought Process: flight of ideas and illogical Thought Content: delusions Insight: poor Judgment: poor Objective Objective Clinical Data: Vital Signs Temperature 36.5 C 03/11/19 16:06 Temperature Source Tympanic 03/11/19 16:06 Pulse 57 L 03/11/19 16:06 Pulse Rhythm Regular 03/13/19 11:10 Respiratory Rate 03/11/19 16:06 Respiratory Effort 03/13/19 11:10 Respiratory Depth Normal 03/13/19 11:10 Respiratory Pattern Normal 03/13/19 11:10 Blood Pressure 128/75 03/11/19 16:06 Pulse Oximetry 96 03/11/19 16:06 Oxygen Delivery Method Room Air 03/11/19 16:06 Oxygen Flow Rate 0 03/11/19 16:06 Pain Level 0 03/13/19 11:10 Comment 03/11/19 06:42 Intake & Output 03/12/19 03/13/19 03/13/19 23:59 11:59 23:59 Intake Total 400 / 400 Balance 400 / 400 Intake: Oral 400 / 400 Other: Comment pt gets up to void AD CALI. Voiding Methods Toilet Laboratory Results WBC 7.49 k/cumm (4.4-10.8) 03/09/19 09:54 RBC 5.34 m/cumm (4.50-6.00) 03/09/19 09:54 Hgb 16.3 g/dL (13.5-17.5) 03/09/19 09:54 Hct 48.7 % (40.0-50.0) 03/09/19 09:54 MCV 91.2 fL (80-95) 03/09/19 09:54 MCH 30.5 pg (27.0-33.0) 03/09/19 09:54 MCHC 33.5 g/dL (32.0-36.0) 03/09/19 09:54 RDW 13.0 % (11.8-14.1) 03/09/19 09:54 Plt Count 194 x1000/uL (130-400) 03/09/19 09:54 MPV 10.3 fL (8.0-11.0) 03/09/19 09:54 Immature Gran % 0.1 03/09/19 09:54 56.4 03/09/19 09:54 Cancelled 03/09/19 02:03 26.7 03/09/19 09:54 Atypical Lymphs % Cancelled 03/09/19 02:03 8.7 03/09/19 09:54 7.2 03/09/19 09:54 0.9 03/09/19 09:54 Cancelled 03/09/19 02:03 Cancelled 03/09/19 02:03 Cancelled 03/09/19 02:03 Absolute Neutrophils 4.22 k/cumm (1.2-6.7) 03/09/19 09:54 Absolute Lymphocytes 2.00 k/cumm (1.2-3.4) 03/09/19 09:54 Absolute Monocytes 0.65 k/cumm (0.11-0.7) 03/09/19 09:54 Absolute Eosinophils 0.54 k/cumm (0.0-0.7) 03/09/19 09:54 Absolute Basophils 0.07 k/cumm (0.0-0.2) 03/09/19 09:54 Nucleated RBCs Cancelled 03/09/19 02:03 Cancelled 03/09/19 02:03 Cancelled 03/09/19 02:03 RBC Morphology Cancelled 03/09/19 02:03 Cancelled 03/09/19 02:03 Cancelled 03/09/19 02:03 Cancelled 03/09/19 02:03 Cancelled 03/09/19 02:03 Cancelled 03/09/19 02:03 Cancelled 03/09/19 02:03 Cancelled 03/09/19 02:03 Cancelled 03/09/19 02:03 Cancelled 03/09/19 02:03 Cancelled 03/09/19 02:03 Cancelled 03/09/19 02:03 Cancelled 03/09/19 02:03 Cancelled 03/09/19 02:03 Cancelled 03/09/19 02:03 Acanthocytes (Spur) Cancelled 03/09/19 02:03 Cancelled 03/09/19 02:03 Sodium 143 mmol/L (136-145) 03/09/19 09:54 Potassium 4.1 mmol/L (3.5-5.1) 03/09/19 09:54 Chloride 107 mmol/L (98-107) 03/09/19 09:54 Carbon Dioxide 27.3 mmol/L (21.0-32.0) 03/09/19 09:54 8.7 mmol/L (3-11) 03/09/19 09:54 BUN 19 mg/dL (7-18) H 03/09/19 09:54 0.82 mg/dL (0.70-1.30) 03/09/19 09:54 >= 60.00 (mL/min/1.73m2) 03/09/19 09:54 Glucose 94 mg/dL (70-100) 03/09/19 09:54 Calcium 8.7 mg/dL (8.5-10.1) 03/09/19 09:54 0.3 mg/dL (0.2-1.0) 03/09/19 09:54 AST 31 U/L (15-37) 03/09/19 09:54 ALT 28 U/L (16-63) 03/09/19 09:54 73 U/L (46-116) 03/09/19 09:54 6.7 g/dL (6.4-8.2) 03/09/19 09:54 3.4 g/dL (3.4-5.0) 03/09/19 09:54 TSH 1.31 uIU/mL (0.36-3.74) 03/09/19 09:54 Yellow (Yellow) 03/09/19 10:10 Clear (Clear) 03/09/19 10:10 6.0 (5-8) 03/09/19 10:10 Ur Specific [place] 1.025 (1.005-1.025) 03/09/19 10:10 Negative mg/dL (Negative) 03/09/19 10:10 Negative mg/dL (Negative) 03/09/19 10:10 Negative (Negative) 03/09/19 10:10 Negative (Negative) 03/09/19 10:10 Negative (Negative) 03/09/19 10:10 0.2 EU/dL (Up TO 0.2) 03/09/19 10:10 Ur Leukocyte Esterase Negative (Negative) 03/09/19 10:10 Negative mg/dL (Negative) 03/09/19 10:10 Salicylates 3.4 mg/dL (2.8-20.0) 03/09/19 09:54 Negative (Negative) 03/09/19 10:10 Negative (Negative) 03/09/19 10:10 Acetaminophen < 2 ug/mL (10-30) L 03/09/19 09:54 Ur Barbiturates Screen Negative (Negative) 03/09/19 10:10 Ur Tricyclics Screen Negative (Negative) 03/09/19 10:10 Ur Amphetamines Screen Negative (Negative) 03/09/19 10:10 U Benzodiazepines Scrn Negative (Negative) 03/09/19 10:10 Negative (Negative) 03/09/19 10:10 Ur THC Screen Positive (Negative) 03/09/19 10:10 Ethyl Alcohol < 3.0 mg/dL (<3) 03/09/19 09:54
--- NOTE | 2019-03-13 13:48 | PDOC.CMSAFE ---
Care Management Safety Plan INVOLUNTARY FOR INPATIENT PSYCHIATRIC STABILIZATION. Per report Jose has been cooperative, though he continues to present with delusional thoughts. [facility] arrived and reported no bed availability for today. She reported that repeat labs and documentation should be faxed to [facility] in the morning for report at the facility's morning meeting. CORIN notified MD of request for repeat labs. Jose has not changed out of his clothes and per RN his parents share this is baseline behavior. He did shower but did not use soap and does smell of inadequate hygiene at this time. Staff will continue to support Jose in changing clothes and showering. No change to safety plan at this time. Safety plan has been established with patient and care team, to adhere to patient goals, identify restrictions based on behavioral status, address nutrition, and determine allowed personal belongings, tools for hygiene and personal care. Determine level of activity including ambulation, level of supervision, visitors, and determine privileges based on behaviors and level of engagement by patient. SAFETY PLAN: 03/13/19 1. Will remain on suicide/behavioral precautions. Permitted to wear his own clothes. 2. Will remain in room under direct supervision of one-on-one staff at all times provided by CPSO; VICENTE, SENIOR TRIAL ATTORNEY mine utility operator. 3. May have paper cups, plates, finger foods and snacks; he enjoys cookies, cheese sticks and milk. 4. Follow [facility] Management of the Admitted Behavioral Health Patient policy. 5. Comfort bath system, able to use shower room with escort at RN discretion . 6. No personal belongings permitted at this time with the exception of his clothing 7. Visitors- limited to parents Butch and Ned and brother Chet at discretion of nursing staff. 8. Activities: crayons, coloring books, and chalk for the blackboard permitted; television if he requests-at RN discretion due to electronic devices previously causing escalation. Jose does pace and is allowed to pace outside his room with the CPSO supervision and at the team discretion. Per his parents he walks frequently around town and the pacing is soothing to Jose. 9. Phone contact limited to Jose's parents and brother at this time. Patient is currently involuntarily at [facility] and seeking inpatient admission when a bed becomes available. [facility] Front line Compressor Battery Pellets will continue seeking placement. Please contact the Relay Shop Tester Bodily Injury Adjuster ([phone]) and [facility] Compressor Battery Pellets ([phone]) for any needed changes in the Safety Plan. Safety plan has been provided to interdepartmental care team. Current bed status updates: [facility] and [facility] are evaluating the referral per facilities and [facility] anticipate no bed until Wednesday. When bed is available Jose will be transported via city alderman coordinated by [facility].
[2019-03-14 07:05] LABS: HCT 48.5 % (40.0-50.0); Mean Corpuscular Hemoglobin 30.2 pg (27.0-33.0); Mean Corpuscular Volume 91.7 fL (80-95); Mean Platelet Volume 10.4 fL (8.0-11.0); Platelet Count 222 x1000/uL (130-400); RBC 5.29 m/cumm (4.50-6.00); RBC Distribution Width 12.8 % (11.8-14.1); White Blood Cell Count 6.48 k/cumm (4.4-10.8)
[2019-03-14 07:29] LABS: Anion Gap 6.9 mmol/L (3-11); BUN 22 mg/dL (7-18); CO2 30.1 mmol/L (21.0-32.0); CREATININE 0.82 mg/dL (0.70-1.30); Calcium 8.6 mg/dL (8.5-10.1); Chloride 106 mmol/L (98-107); Glucose 111 mg/dL (70-100); Magnesium 2.1 mg/dL (1.8-2.4); Potassium 3.9 mmol/L (3.5-5.1); Sodium 143 mmol/L (136-145)
--- NOTE | 2019-03-14 14:10 | PGE_ITS ---
Date of Service Date of service: 03/14/19 Time of Service: 14:10 Assessment and Plan (1) Schizophrenia, acute: Current visit: Yes Status: Acute Apparently, he was exhibiting aggressive, violent and paranoid behaviors at home. He remains cooperative and calm at present. He states he feels safe in the hospital. He is eating and drinking. Referrals have been sent to psychiatric facilities. He remains on EE status, awaiting bed placement. (2) DVT prophylaxis: Current visit: Yes Status: Acute Not indicated in this 28 year old ambulatory man. (3) Discharge planning issues: Current visit: Yes Status: Acute He is a full code. Mental health continues to follow him and attempting to get him placed at a psychiatric facility. This case was discussed with Dr. Sunshine who is in agreement. Subjective Interval history since last seen: Jose Mcallister remains in the transition unit on EE status, awaiting placement at a psychiatric facility. Earlier today, he verbalized that he wanted to leave the hospital, he was redirected. He never became violent. He verbalizes frustration with being in the hospital for several days. He made eye contact briefly. He denies feeling anxious at present. He is eating and drinking, he denies any physical complaints such as shortness of breath, coughing, wheezing, chest pain/pressure, palpitations, nausea, vomiting or diarrhea. He denies feeling suicidal or homicidal. Exam Narrative Exam Narrative: General: He is calm and cooperative. He makes eye contact for brief periods. Eating lunch. HEENT: normocephalic, atraumatic, pupils equal and round, mucous membranes moist, poor dentition. Neck: supple. Cardiovascular: Heart has regular rate and rhythm, no murmur appreciated. Respiratory: respirations even and unlabored, lung sounds clear bilaterally. GI: normoactive bowel sounds, abdomen soft, nondistended, nontender on palpation. Extremities: no clubbing, cyanosis or edema. Objective Objective Clinical Data: Abnormal lab results 03/14/19 Range/Units 06:35 BUN 22 H (7-18) mg/dL Glucose 111 H (70-100) mg/dL Vital Signs Temperature 36.5 C 03/11/19 16:06 Temperature Source Tympanic 03/11/19 16:06 Pulse 57 L 03/11/19 16:06 Pulse Rhythm Regular 03/14/19 08:03 Respiratory Rate 19 03/11/19 16:06 Respiratory Effort 03/14/19 08:03 Respiratory Depth Normal 03/14/19 08:03 Respiratory Pattern Normal 03/14/19 08:03 Blood Pressure 128/75 03/11/19 16:06 Pulse Oximetry 96 03/11/19 16:06 Oxygen Delivery Method Room Air 03/11/19 16:06 Oxygen Flow Rate 0 03/11/19 16:06 Pain Level 0 03/13/19 11:10 Comment 03/11/19 06:42 Intake & Output 03/13/19 03/14/19 03/14/19 23:59 11:59 23:59 Intake Total 240 / 640 Balance 240 / 640 Intake: Oral 240 / 640 Other: Urine Appearance Clear Comment pt has been voiding ad lane and flushing toilet. No c/o discomfort Voiding Methods Toilet Laboratory Results WBC 6.48 k/cumm (4.4-10.8) 03/14/19 06:35 RBC 5.29 m/cumm (4.50-6.00) 03/14/19 06:35 Hgb 16.0 g/dL (13.5-17.5) 03/14/19 06:35 Hct 48.5 % (40.0-50.0) 03/14/19 06:35 MCV 91.7 fL (80-95) 03/14/19 06:35 MCH 30.2 pg (27.0-33.0) 03/14/19 06:35 MCHC 33.0 g/dL (32.0-36.0) 03/14/19 06:35 RDW 12.8 % (11.8-14.1) 03/14/19 06:35 Plt Count 222 x1000/uL (130-400) 03/14/19 06:35 MPV 10.4 fL (8.0-11.0) 03/14/19 06:35 Immature Gran % 0.1 03/09/19 09:54 56.4 03/09/19 09:54 Cancelled 03/09/19 02:03 26.7 03/09/19 09:54 Atypical Lymphs % Cancelled 03/09/19 02:03 8.7 03/09/19 09:54 7.2 03/09/19 09:54 0.9 03/09/19 09:54 Cancelled 03/09/19 02:03 Cancelled 03/09/19 02:03 Cancelled 03/09/19 02:03 Absolute Neutrophils 4.22 k/cumm (1.2-6.7) 03/09/19 09:54 Absolute Lymphocytes 2.00 k/cumm (1.2-3.4) 03/09/19 09:54 Absolute Monocytes 0.65 k/cumm (0.11-0.7) 03/09/19 09:54 Absolute Eosinophils 0.54 k/cumm (0.0-0.7) 03/09/19 09:54 Absolute Basophils 0.07 k/cumm (0.0-0.2) 03/09/19 09:54 Nucleated RBCs Cancelled 03/09/19 02:03 Cancelled 03/09/19 02:03 Cancelled 03/09/19 02:03 RBC Morphology Cancelled 03/09/19 02:03 Cancelled 03/09/19 02:03 Cancelled 03/09/19 02:03 Cancelled 03/09/19 02:03 Cancelled 03/09/19 02:03 Cancelled 03/09/19 02:03 Cancelled 03/09/19 02:03 Cancelled 03/09/19 02:03 Cancelled 03/09/19 02:03 Cancelled 03/09/19 02:03 Cancelled 03/09/19 02:03 Cancelled 03/09/19 02:03 Cancelled 03/09/19 02:03 Cancelled 03/09/19 02:03 Cancelled 03/09/19 02:03 Acanthocytes (Spur) Cancelled 03/09/19 02:03 Cancelled 03/09/19 02:03 Sodium 143 mmol/L (136-145) 03/14/19 06:35 Potassium 3.9 mmol/L (3.5-5.1) 03/14/19 06:35 Chloride 106 mmol/L (98-107) 03/14/19 06:35 Carbon Dioxide 30.1 mmol/L (21.0-32.0) 03/14/19 06:35 6.9 mmol/L (3-11) 03/14/19 06:35 BUN 22 mg/dL (7-18) H 03/14/19 06:35 0.82 mg/dL (0.70-1.30) 03/14/19 06:35 >= 60.00 (mL/min/1.73m2) 03/14/19 06:35 Glucose 111 mg/dL (70-100) H 03/14/19 06:35 Calcium 8.6 mg/dL (8.5-10.1) 03/14/19 06:35 Magnesium 2.1 mg/dL (1.8-2.4) 03/14/19 06:35 0.3 mg/dL (0.2-1.0) 03/09/19 09:54 AST 31 U/L (15-37) 03/09/19 09:54 ALT 28 U/L (16-63) 03/09/19 09:54 73 U/L (46-116) 03/09/19 09:54 6.7 g/dL (6.4-8.2) 03/09/19 09:54 3.4 g/dL (3.4-5.0) 03/09/19 09:54 TSH 1.31 uIU/mL (0.36-3.74) 03/09/19 09:54 Yellow (Yellow) 03/09/19 10:10 Clear (Clear) 03/09/19 10:10 6.0 (5-8) 03/09/19 10:10 Ur Specific [place] 1.025 (1.005-1.025) 03/09/19 10:10 Negative mg/dL (Negative) 03/09/19 10:10 Negative mg/dL (Negative) 03/09/19 10:10 Negative (Negative) 03/09/19 10:10 Negative (Negative) 03/09/19 10:10 Negative (Negative) 03/09/19 10:10 0.2 EU/dL (Up TO 0.2) 03/09/19 10:10 Ur Leukocyte Esterase Negative (Negative) 03/09/19 10:10 Negative mg/dL (Negative) 03/09/19 10:10 Salicylates 3.4 mg/dL (2.8-20.0) 03/09/19 09:54 Negative (Negative) 03/09/19 10:10 Negative (Negative) 03/09/19 10:10 Acetaminophen < 2 ug/mL (10-30) L 03/09/19 09:54 Ur Barbiturates Screen Negative (Negative) 03/09/19 10:10 Ur Tricyclics Screen Negative (Negative) 03/09/19 10:10 Ur Amphetamines Screen Negative (Negative) 03/09/19 10:10 U Benzodiazepines Scrn Negative (Negative) 03/09/19 10:10 Negative (Negative) 03/09/19 10:10 Ur THC Screen Positive (Negative) 03/09/19 10:10 Ethyl Alcohol < 3.0 mg/dL (<3) 03/09/19 09:54
--- NOTE | 2019-03-14 14:18 | CMSP_ITS ---
- If Service Date Differs Date of service: 03/14/19 Time of Service: 14:18 Care Management Safety Plan INVOLUNTARY FOR INPATIENT PSYCHIATRIC STABILIZATION. Per report Jose has been cooperative, though he continues to present with delusional thoughts and wants to return home. He frequently talks to himself during interaction and states the HARINDER is checking everyone out to make sure that he is safe. CM was able to deescalate patient by talking to him He was able to shower last evening and offered change of clothes. CM updated his Mom today and reviewed the plan. CM reviewed plan with primary nurse and changes are minimal including adding puzzles to the plan and his clothes. CM has spoken to [facility] they have requested information and it has been faxed. Safety plan has been established with patient and care team, to adhere to patient goals, identify restrictions based on behavioral status, address nutrition, and determine allowed personal belongings, tools for hygiene and personal care. Determine level of activity including ambulation, level of supervision, visitors, and determine privileges based on behaviors and level of engagement by patient. SAFETY PLAN: 03/13/19 1. Will remain on suicide/behavioral precautions. Permitted to wear his own clothes and have them in the room including his glasses. 2. Will remain in room under direct supervision of one-on-one staff at all times provided by CPSO; VICENTE, PRINTED CIRCUIT BOARDS PINNER customer support professional. 3. May have paper cups, plates, finger foods and snacks; he enjoys cookies, cheese sticks and milk. 4. Follow [facility] Management of the Admitted Behavioral Health Patient policy. 5. Comfort bath system, able to use shower room with escort at RN discretion . 6. No personal belongings permitted at this time with the exception of his c lothing 7. Visitors- limited to parents Butch and Ned and brother Chet at discretion of nursing staff. 8. Activities: crayons, coloring books, puzzles (jigsaw)and chalk for the blackboard permitted; television if he requests-at RN discretion due to electronic devices previously causing escalation. Jose does pace and is allowed to pace outside his room with the CPSO supervision and at the team di scretion. Per his parents he walks frequently around town and the pacing is soothing to Jose. 9. Phone contact limited to Jose's parents and brother at this time. Patient is currently involuntarily at [facility] and seeking inpatient admission when a bed becomes available. [facility] Front line Senior Underwriter will continue seeking placement. Please contact the Records Section Supervisor Mobile Home Technician ([phone]) and [facility] Senior Underwriter ([phone]) for any needed changes in the Safety Plan. Safety plan has been provided to interdepartmental care team. Current bed status updates: [facility] and [facility] and [facility] are evaluating the referral per facilities and [facility], referrals pending to [facility] and [facility] both are reviewing. When bed is available Jsoe will be transported via senior sql developer coordi nated by [facility].
--- NOTE | 2019-03-14 17:05 | CMSP_ITS ---
- If Service Date Differs Date of service: 03/14/19 Time of Service: 17:05 Care Management Safety Plan Care Management Safety Plan INVOLUNTARY FOR INPATIENT PSYCHIATRIC STABILIZATION. Per report Jose has been cooperative, though he continues to present with delusional thoughts and wants to return home. He frequently talks to himself during interaction and states the HARINDER is checking everyone out to make sure that he is safe. CM was able to deescalate patient by talking to him He was able to shower last evening and offered change of clothes. CM updated his Mom today and reviewed the plan. CM reviewed plan with primary nurse and changes are minimal including adding puzzles to the plan and his clothes. [facility] and [facility] been [facility]. Safety plan has been established with patient and care team, to adhere to patient goals, identify restrictions based on behavioral status, address nutrition, and determine allowed personal belongings, tools for hygiene and personal care. Determine level of activity including ambulation, level of supervision, visitors, and determine privileges based on behaviors and level of engagement by patient. SAFETY PLAN: 03/13/19 1. Will remain on suicide/behavioral precautions. Permitted to wear his own clothes and have them in the room including his glasses. 2. Will remain in room under direct supervision of one-on-one staff at all times provided by CPSO; VICENTE, LEGAL BILLING COORDINATOR compliance auditor. 3. May have paper cups, plates, finger foods and snacks; he enjoys cookies, ch eese sticks and milk. Jose may use a metal spoon at nurse's discretion. Staff to be responsible for removing the utensil after meals. 4. Follow [facility] Management of the Admitted Behavioral Health Patient policy. 5. Comfort bath system, able to use shower room with escort at RN discretion . 6. No personal belongings permitted at this time with the exception of his clothing and glasses. 7. Visitors- limited to parents Butch and Ned and brother Chet at discretion of nursing staff. 8. Activities: crayons, coloring books, puzzles (jigsaw)and chalk for the blackboard permitted; television if he requests-at RN discretion due to electronic devices previously causing escalation. Jose does pace and is allowed to pace outside his room with the CPSO supervision and at the team discretion. Per his parents he walks frequently around town and the pacing is soothing to Jose. 9. Phone contact limited to Jose's parents and brother at this time. Patient is currently involuntarily at [facility] and seeking inpatient admission when a bed becomes available. [facility] Front line Offset Proof Press Operator will continue seeking placement. Please contact the Sap Technical Architect Construction Director ([phone]) and [facility] Offset Proof Press Operator ([phone]) for any needed changes in the Safety Plan. Safety plan has been provided to interdepartmental care team. Current bed status updates: [facility] and [facility] and [facility] are evaluating the referral per facilities and [facility], referrals pending to [facility] and [facility] both are reviewing. When bed is available Jose will be transported via artificial breeding distributor coordinated by [facility].
--- NOTE | 2019-03-15 08:45 | NUR.NOTE ---
Nursing Note: 0835: pt's father calls for update. pt father given update that pt has slept since 0100 and is currently still sleeping. RN informs pt's father that if any changes or updates arise, RN will call parents and alert them.
--- NOTE | 2019-03-15 11:23 | PDOC.MHPN2 ---
Date of service: 03/15/19 Time of Service: 11:23 Mental Health Progress Note Progress Note: Presenting Issue: Jose remains at [facility] on involuntary status awaiting a psych placement. He first came to the hospital during the pulp cooker hours of 03/09/19 after becoming highly agitated and aggressive at home. Since being at [facility], Jose has been calm and cooperative. Precipitating Factors: Today, Jose is more talkative than he has been in the past. He reports sleeping well at night but states that he is still tired and needs more sleep. He has also been eating well. Jose spends his days sitting on the bed looking out the window or pacing around his room while interacting with internal stimuli. He continues to experience disturbances from satellites and at times laughs inappropriately. He denies suicidal or homicidal ideation. Disposition * Behavior: Cooperative. *Eye Contact: Intermittent. *Mood: Guarded. *Affect: Suspicious. *Appetite: Good. *Sleep(troubel falling/staying asleep): Reported as good. Plan(please elaborate and include that physician is consulted with plan and/or placement): [facility] Jose for admission. The doc-to-doc has taken place and we are awaiting a [id number] before the transfer can be arranged. Clinician's Name , Title, and Signature: Jessica Jim BA, [facility] Feed Handler Make sure that you are photocopying and submitting this to [facility] records Dept. to be scanned into chart.
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
--- NOTE | 2019-03-15 15:13 | NUR.NOTE ---
Nursing Note: 1507: nurse to nurse report given to Dy at [facility]. all questions answered.
--- NOTE | 2019-03-15 17:33 | PDOC.CMDIS ---
- If Service Date Differs Date of service: 03/15/19 Time of Service: 17:33 LACE Index Scoring Tool - Questions: Length of Stay (in days): 7 - 13 Acuity (Admit via E.D.?): Yes E.D. Visits: 1 - Answers: Total Score: 9 Risk of Readmission: Low Risk Care Management Discharge Reason for Hospitalization: Psychiatric stabilization Discharge Plan: Jose is being discharged to [facility] today. He will be transfered via [facility] coordinated by CM and Mental Health. His Mom Butch was updated with the transfer. Patient/Family Education Needs: Discharge instructions, transfer to and expectations. Family notified of transition and CM answered all questions. Services Needed at Discharge: Psychiatric Facility, Transportation - MH Services (Omit if N/A) Current MH Services: Psychiatric Inp
== END 2019-03-15 17:56 | disposition short-term general hospital (02) | DRG 883 ==
LOC: ER 19:53 → MS 03-10 10:07
PROVIDERS: Nurse Practitioner Family; Admitting Provider Internal Medicine; Emergency Provider Emergency Medicine; PCP Family Medicine; Visit Provider Internal Medicine
DX: F60.1 Schizoid personality disorder (principal); F20.9 Schizophrenia, unspecified; F22 Delusional disorders; Z75.1 Person awaiting admission to adequate facility elsewhere
CPT/HCPCS: 36415; 80048; 80053; 80307; 85027; 96374; 96375; 99219; 99232; 99233; 99239; 99285; 80320; 80329; 81003; 83735; 84443; 85025; 99284; G0378; J1630; J2060

== ENCOUNTER 2019-07-17 08:25 | Outpatient (CLI) | payer MEDICAID, SELFPAY ==
[2019-07-17 10:39] LABS: Abs Immature Grans 0.01 k/cumm (0.0-0.09); Absolute Basophil Count 0.04 k/cumm (0.0-0.2); Absolute Lymphocyte Count 1.84 k/cumm (1.2-3.4); Absolute Monocyte Count 0.39 k/cumm (0.11-0.7); Absolute Neutrophil Count 2.36 k/cumm (1.2-6.7); Basophils % 0.8; Eosinophils % 9.7; HCT 48.8 % (40.0-50.0); HGB 16.4 g/dL (13.5-17.5); Immature Grans % 0.2 %; Lymphocytes % 35.8; Mean Corp. HGB Concentration 33.6 g/dL (32.0-36.0); Mean Corpuscular Hemoglobin 30.1 pg (27.0-33.0); Mean Corpuscular Volume 89.7 fL (80-95); Mean Platelet Volume 11.5 fL (8.0-11.0); Monocytes % 7.6; Neutrophils % 45.9; Platelet Count 205 x1000/uL (130-400); RBC 5.44 m/cumm (4.50-6.00); RBC Distribution Width 12.2 % (11.8-14.1); White Blood Cell Count 5.14 k/cumm (4.4-10.8)
[2019-07-17 10:54] LABS: ALT 23 U/L (16-63); AST 11 U/L (15-37); Albumin 4.1 g/dL (3.4-5.0); Alkaline Phosphatase 75 U/L (46-116); Anion Gap 8.9 mmol/L (3-11); BUN 13 mg/dL (7-18); Bilirubin, Total 0.5 mg/dL (0.2-1.0); CO2 31.1 mmol/L (21.0-32.0); CREATININE 0.89 mg/dL (0.70-1.30); Calcium 9.3 mg/dL (8.5-10.1); Calculated LDL 124 mg/dL; Chloride 104 mmol/L (98-107); Cholesterol 182 mg/dL (<200); Glucose 93 mg/dL (74-106); HDL Cholesterol 40 mg/dL (40-60); Potassium 4.1 mmol/L (3.5-5.1); Sodium 144 mmol/L (136-145); TSH 0.05 uIU/mL (0.36-3.74); Total Protein 7.4 g/dL (6.4-8.2); Triglyceride 93 mg/dL (<150)
== END 2019-07-17 08:45 ==
PROVIDERS: PCP Family Medicine; Visit Provider Nurse Practitioner Family
DX: F20.9 Schizophrenia, unspecified (principal); Z79.899 Other long term (current) drug therapy
CPT/HCPCS: 36415; 80053; 80061; 84443; 85025

== ENCOUNTER 2019-07-27 07:00 | Outpatient (CLI) | payer MEDICAID, SELFPAY ==
[2019-07-27 18:30] LABS: T3,Free 4.1 pg/mL (2.8-5.3)
== END 2019-07-27 07:20 ==
PROVIDERS: PCP Family Medicine; Visit Provider Family Medicine
DX: R79.89 Other specified abnormal findings of blood chemistry (principal)
CPT/HCPCS: 36415; 84481

== ENCOUNTER 2019-08-06 14:24 | Emergency (ER) | payer MEDICAID, SELFPAY ==
[2019-08-06 14:27] VITALS: BP 137/89; PULSE 102; RESP 16; TEMP 37.2; O2SAT 97
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
[2019-08-06] MEDS: LORazepam 1 MG TAB PO (14:47)
[2019-08-06] MEDS: Ondansetron O.D.T. 4 MG TABEF PO (14:48)
== END 2019-08-06 15:45 | disposition home or self-care (01) ==
PROVIDERS: Emergency Provider Emergency Medicine; PCP Family Medicine
DX: R11.0 Nausea (principal); F41.9 Anxiety disorder, unspecified; R45.0 Nervousness; T43.3X6A Underdosing of phenothiazine antipsychotics and neuroleptics, initial encounter; T44.3X6A Underdosing of other parasympatholytics [anticholinergics and antimuscarinics] and spasmolytics, initial encounter; Z91.128 Patient's intentional underdosing of medication regimen for other reason; F60.1 Schizoid personality disorder
CPT/HCPCS: 99283

== ENCOUNTER 2020-04-26 08:20 | Outpatient (CLI) | payer MEDICAID, SELFPAY ==
[2020-04-26 12:55] LABS: FREE T4 1.22 ng/dL (0.76-1.46); TSH 1.17 uIU/mL (0.36-3.74)
[2020-04-26 17:10] LABS: T3,Free 3.6 pg/mL (2.8-5.3)
== END 2020-04-26 08:40 ==
PROVIDERS: PCP Family Medicine; Visit Provider Family Medicine
DX: R63.4 Abnormal weight loss (principal); R94.6 Abnormal results of thyroid function studies
CPT/HCPCS: 36415; 84439; 84443; 84481

== ENCOUNTER 2020-05-02 04:22 | Outpatient (CLI) | payer MEDICAID, SELFPAY ==
[2020-05-02 22:58] LABS: Thyroglobulin Antibody <15 U/mL (<=60); Thyroperoxidase Antibody 29 U/mL (<=60)
== END 2020-05-02 04:42 ==
PROVIDERS: PCP Family Medicine; Visit Provider Family Medicine
DX: R79.89 Other specified abnormal findings of blood chemistry (principal)
CPT/HCPCS: 36415; 86376

== ENCOUNTER 2020-09-20 11:00 | Outpatient (CLI) | payer MEDICAID, SELFPAY ==
[2020-09-21 12:00] LABS: COVID-19 RT-PCR UVMMC Result Negative (Negative)
== END 2020-09-20 11:01 | disposition home or self-care (01) ==
PROVIDERS: PCP Family Medicine; Visit Provider Family Medicine
DX: Z20.822 Contact with and (suspected) exposure to COVID-19 (principal)
CPT/HCPCS: U0003

== ENCOUNTER 2021-05-06 03:40 | Outpatient (CLI) | payer MEDICAID, SELFPAY ==
[2021-05-06 08:30] LABS: Hemoglobin A1C 4.9 % (<5.7)
[2021-05-06 08:54] LABS: Calculated LDL 93 mg/dL (<100); Cholesterol 167 mg/dL (<200); HDL Cholesterol 48 mg/dL (40-60); Triglyceride 133 mg/dL (<150)
[2021-05-06 17:33] LABS: PSA, Screening 0.8 ng/mL (0.0-2.5)
== END 2021-05-06 03:41 | disposition home or self-care (01) ==
LOC: LBO 03:40
PROVIDERS: PCP Nurse Practitioner Family; Visit Provider Nurse Practitioner Family
DX: Z13.220 Encounter for screening for lipoid disorders (principal); Z13.1 Encounter for screening for diabetes mellitus; Z12.5 Encounter for screening for malignant neoplasm of prostate
CPT/HCPCS: 36415; 80061; 84153; 83036

== ENCOUNTER 2022-11-17 01:29 | Outpatient (CLI) | payer MEDICAID, SELFPAY ==
--- NOTE | 2022-11-17 14:05 | DI.CT_ITS ---
Exam(s) CT HEAD WO EXAM: CT HEAD WO CLINICAL HISTORY: ? pathology,SCHIZOPHRENIA, F20.9. TECHNIQUE: Imaging Protocol: Axial computed tomography images with coronal and sagittal reformatted images were created and reviewed COMPARISON: MR MRI - BRAIN WO CONTRAST from 03/28/2014 FINDINGS: There are no skull fractures. There is no fluid in the visualized paranasal sinuses. There is no evidence of intracranial hemorrhage, mass effect, or shift of midline structures. There are no extra-axial fluid collections. The ventricles are not enlarged or shifted and there is no blo od within the ventricular system nor within the basal cisterns. There is very subtle hypodensity both frontal lobes. This is possibly just artifact but cannot exclu de significant findings such is encephalomalacia, particularly if there has been interval trauma sinc e the prior MRI scan of March 2014 (when the frontal lobes appeared unremarkable.). IMPRESSION: Subtle bilateral frontal lobe hypodensity, difficult to determine this is true finding versus artifac t. Frontal lobes appeared unremarkable on MRI scan of March 2014. Correlation with any interval frontal trauma recommended as this finding may represent sequelae of frontal contusions. If clinica lly indicated follow-up MRI can be performed for added sensitivity and specificity, and to compared t o the 2014 MRI exam. RADIATION DOSE DELIVERED: 811.96mGy.cm Total DLP DATA REPOSITORY: All CT scans at this facility are submitted to the National Radiology Data Registry (NRDR) Dose Index Registry (DIR) with the [employer] (ACR). RADIATION OPTIMIZATION: All CT scans at this facility use at least one of these dose optimization te chniques: automated exposure control; mA and/or kV adjustment per patient size (includes targeted exa ms where dose is matched to clinical indication); or iterative reconstruction.
== END 2022-11-17 01:49 ==
LOC: DI 01:30
PROVIDERS: PCP Nurse Practitioner Family; Visit Provider Nurse Practitioner Family
DX: F20.9 Schizophrenia, unspecified (principal)
CPT/HCPCS: 70450

== ENCOUNTER 2024-02-13 20:23 | Emergency (ER) | payer MEDICAID, SELFPAY ==
[2024-02-13 20:33] VITALS: PULSE 125; RESP 30; TEMP 36.5
--- NOTE | 2024-02-13 20:45 | RT.EKG_ITS ---
APPROVED REPORT Exam: Resting ECG Reason for Exam: weakness Patient Location: E HR:101 bpm ECG Measurements Heart Rate 101 AXIS WI 167 P 83 QRSd 109 QRS 90 QT 352 T 68 QTc 456 Conclusion Sinus tachycardia...rate> 99 Probable left atrial enlargement...P >50mS, <-0.10mV V1 ST elev, probable normal early repol pattern...ST elevation, age<55 sinus tachycardia, normal axis, normal intervals, non ischemic
[2024-02-13 20:51] VITALS: BP 157/96; PULSE 125; RESP 30; TEMP 36.5; O2SAT 99
[2024-02-13] MEDS: Midazolam 2 MG/2 ML VIAL IM (21:04)
[2024-02-13] MEDS: Haloperidol 5 MG/ML VIAL IM (21:04)
[2024-02-13 21:33] VITALS: BP 157/96; PULSE 125; RESP 30; TEMP 36.5
[2024-02-13 21:45] LABS: Abs Immature Grans 0.02 10^3/uL (0.0-0.06); Absolute Basophil Count 0.04 10^3/uL (0.0-0.2); Absolute Lymphocyte Count 0.57 10^3/uL (1.2-3.4); Absolute Monocyte Count 0.47 10^3/uL (0.1-0.8); Absolute Neutrophil Count 2.76 10^3/uL (1.2-6.7); Eosinophils % 2.5 %; HCT 43.9 % (40.0-50.0); HGB 15.1 g/dL (13.5-17.5); Immature Grans % 0.5 %; Lymphocytes % 14.4 %; MCHC 34.4 % (32.0-36.0); MCV 93 fL (80-95); MPV 10.1 fL (8.0-11.0); Monocytes % 11.9 %; Neutrophils % 69.7 %; Platelet Count 137 10^3/uL (130-400); RBC 4.72 10^6/uL (4.36-5.78); RDW 12.2 % (11.8-14.1); RDW-SD 42.1 fL; WBC 3.96 10^3/uL (4.4-10.8)
[2024-02-13 22:00] LABS: ALT 291 U/L (16-63); AST 182 U/L (15-37); Albumin 3.6 g/dL (3.4-5.0); Alkaline Phosphatase 113 U/L (46-116); Anion Gap 12.3 mmol/L (3-11); BUN 4 mg/dL (7-18); Bilirubin, Total 0.66 mg/dL (0.2-1.0); CO2 26.7 mmol/L (21.0-32.0); CREATININE 0.7 mg/dL (0.70-1.30); Calcium 8.6 mg/dL (8.5-10.1); Chloride 102 mmol/L (98-107); ETHANOL BLOOD 163.3 mg/dL (<10); Estimated GFR 123.23 (mL/min/1.73m2); Glucose 107 mg/dL (74-106); Magnesium 1.6 mg/dL (1.8-2.4); Potassium 3.1 mmol/L (3.5-5.1); Sodium 141 mmol/L (136-145); Total Protein 6.5 g/dL (6.4-8.2)
[2024-02-13 22:25] LABS: Acetaminophen < 2 ug/mL (10-30); Salicylate 3.6 mg/dL (<2.8)
[2024-02-13 23:32] VITALS: BP 120/82; PULSE 103; RESP 24; O2SAT 96
[2024-02-13 23:39] VITALS: BP 120/82; PULSE 77; PULSE 78; RESP 12; O2SAT 95
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
[2024-02-14 00:36] VITALS: BP 113/65; PULSE 83; RESP 16
--- NOTE | 2024-02-14 00:37 | NUR.NOTE ---
Nursing Note: Woke pt to give him his medications. Pt asking to go home. Informed him he can not at this time. Pt not understanding why. Pt refused to take the magnesium and potassium. Pt refused water when offered. Pt laid back down to sleep.
[2024-02-14 01:00] VITALS: BP 117/66; PULSE 90; RESP 17; O2SAT 98
[2024-02-14 02:00] VITALS: BP 176/69; PULSE 81; RESP 14
[2024-02-14 05:01] VITALS: BP 106/55; PULSE 74; RESP 12; O2SAT 98
--- NOTE | 2024-02-14 06:42 | W.EDPROG ---
Date of service: 02/14/24 Time of Service: 06:42 Medical Decision Making Patient presented yesterday on mental health warrant with untreated schizophrenia, homicidal threats. Patient medically cleared and EE'd. He has been calm and cooperative, sleeping all night. Second certification pending. Lab Data Lab results reviewed: Yes I reviewed the patient's lab results. Sign Out Sign Out Data: Sign Out Comment: EE-paranoid, delusional schizophrenia, HI ETOH, on ciwa pending second certification mg k repleted Last updated by Michelle Jo PA at 02/14/24 00:15 Discharge Plan Discharge Details Chief Complaint: PsychEval Clinical Impression: Schizophrenia, Homicidal ideation, Alcohol abuse, Hallucination Primary Care Provider: Yoandy Barahona ED Provider: Feroz Espinoza Home Meds and New Rx's Prescriptions: No Action No Known Home Meds
--- NOTE | 2024-02-14 06:58 | W.EDPROG ---
Date of service: 02/14/24 Time of Service: 06:58 Medical Decision Making Care assumed from outgoing provider. Patient is a 33-year-old gentleman with history of schizophrenia presenting with significant decompensation. An EE has been filed, and is pending second certification. no word on 2nd cert. patient has been moved to zone b and had no additional issues throughout the shift. Quality:SDOH Health Related Social Needs: No Data to Display Sign Out Sign Out Data: Sign Out Comment: EE-paranoid, delusional schizophrenia, HI ETOH, on ciwa pending second certification mg, k repleted Last updated by Michelle Jo PA at 02/14/24 00:15 Sign Out Comment: Untreated schizophrenia with homicidal ideation has been in the ED and is pending second certification. Last updated by Feroz Espinoza MD at 02/14/24 06:53 Discharge Plan Discharge Details Chief Complaint: PsychEval Clinical Impression: Schizophrenia, Homicidal ideation, Alcohol abuse, Hallucination Primary Care Provider: Yoandy Barahona ED Provider: Emani Armendariz Home Meds and New Rx's Prescriptions: No Action No Known Home Meds
[2024-02-14 07:25] LABS: *AMPHETAMINES SCREEN URINE Negative (Negative); *BARBITURATES SCREEN URINE Negative (Negative); *BENZODIAZEPINES SCREEN URINE Negative (Negative); Cannabinoids THC Positive (Negative); Cocaine Screen,Urine Negative (Negative); OPIATES URINE SCREEN Negative (Negative)
[2024-02-14 07:26] LABS: Tricyclic Antidepressants Negative (Negative)
--- NOTE | 2024-02-14 16:01 | CMSP_ITS ---
Date of service: 02/14/24 Time of Service: 16:05 Care Management Safety Plan Status Status: Involuntary Safety Plan Safety Plan: INVOLUNTARY FOR INPATIENT PSYCHIATRIC STABILIZATION.? Patient is appropriate in all interactions since arriving at [facility]; Pt has demonstrated appropriate coping and communication skills, has articulated his or her needs and concerns and is fully engaged during staff interactions. Safety plan has been established with patient, and care team, to adhere to patient goals, identify restrictions based on behavioral status, address nutrition, and determine allowed personal belongings, tools for hygiene and personal care. Determine level of activity including ambulation, level of supervision, visitors, and determine privileges based on behaviors and level of engagement by pt. SAFETY PLAN: 1. Will remain on suicide precautions, in paper clothes 2. Will remain in Zone B under direct supervision of one-on-one staff at all times provided by [employer]; VICENTE, PEG DRIVER finishing supervisor. 3. May have paper cups, plates, finger foods as well as a cardboard spoon with which to eat meals. 4. Follow [facility] Management of the Admitted Behavioral Health Patient policy. 5. Shower available in Zone B without restriction. 6. Personal belongings-soft items permitted at RN discretion. 7. Visitors- parents; at RN discretion. 8. Activities: soft cart items approved per RN discretion. 9.? Bathroom available in Zone B without restriction. 10. Phone: limited to [facility] cordless phone at RN discretion. Due to INVOLUNTARY status, patient is being held at [facility] by the Department of Mental Health ([facility]) until 2nd certification by [facility] Psychiatrist can be performed (within 24 hours). Staff will provide de-escalation support (CPI) as needed. If patient wishes to leave [facility], staff will contact [facility] Crisis Screener ([phone]) and [employer] ([phone]) as soon as possible. In the event of elopement, notify [place] [employer] ([phone]). Patient is currently involuntarily at [facility]. [facility] Frontline Van Loader will continue seeking placement. Please contact the [employer] for any needed changes to Safety Plan. Safety plan has been provided to interdepartmental care team. Patient will be transported by [employer] at time of discharge.
--- NOTE | 2024-02-14 16:01 | PDOC.CMSAFE ---
Date of service: 02/14/24 Time of Service: 16:05 Care Management Safety Plan Status Status: Involuntary Safety Plan Safety Plan: INVOLUNTARY FOR INPATIENT PSYCHIATRIC STABILIZATION.? Patient is appropriate in all interactions since arriving at [facility]; Pt has demonstrated appropriate coping and communication skills, has articulated his or her needs and concerns and is fully engaged during staff interactions. Safety plan has been established with patient, and care team, to adhere to patient goals, identify restrictions based on behavioral status, address nutrition, and determine allowed personal belongings, tools for hygiene and personal care. Determine level of activity including ambulation, level of supervision, visitors, and determine privileges based on behaviors and level of engagement by pt. SAFETY PLAN: 1. Will remain on suicide precautions, in paper clothes 2. Will remain in Zone B under direct supervision of one-on-one staff at all times provided by [employer]; VICENTE, WOOD PROCESSING WORKER good humor vendor. 3. May have paper cups, plates, finger foods as well as a cardboard spoon with which to eat meals. 4. Follow [facility] Management of the Admitted Behavioral Health Patient policy. 5. Shower available in Zone B without restriction. 6. Personal belongings-soft items permitted at RN discretion. 7. Visitors- parents; at RN discretion. 8. Activities: soft cart items approved per RN discretion. 9.? Bathroom available in Zone B without restriction. 10. Phone: limited to [facility] cordless phone at RN discretion. Due to INVOLUNTARY status, patient is being held at [facility] by the Department of Mental Health ([facility]) until 2nd certification by [facility] Psychiatrist can be performed (within 24 hours). Staff will provide de-escalation support (CPI) as needed. If patient wishes to leave [facility], staff will contact [facility] Crisis Screener ([phone]) and Vent[employer] Rib Fitter ([phone]) as soon as possible. In the event of elopement, notify [place] [employer] ([phone]). Patient is currently involuntarily at [facility]. [facility] Frontline Backrest Assembler will continue seeking placement. Please contact the Ventilated Rib Fitter for any needed changes to Safety Plan. Safety plan has been provided to interdepartmental care team. Patient will be transported by [employer] at time of discharge.
--- NOTE | 2024-02-14 16:06 | CMPROGNOTE_ITS ---
Date of service: 02/14/24 Time of Service: 16:06 Care Management Progress Note Progress Note Text Progress Note Text: Jose was in ED room 9 when CM presented to [facility]. Zone B did not have a bed available this morning, but he was moved to zone B once a bed became available due to discharges. Per staff report, Jose required restraint last evening, but he has been sleeping most of today, and has been cooperative when not asleep. Jose was brought to [facility] as an involuntary patient; his second certification is expected later today. CM will continue to follow.
--- NOTE | 2024-02-14 17:20 | W.EDPROG ---
Date of service: 02/14/24 Time of Service: 17:21 Medical Decision Making Patient on ED status for decompensated schizophrenia, no reported issues on prior shift and currently with no new acute complaints. Will continue to monitor until safe disposition found Quality:SDOH Health Related Social Needs: No Data to Display Sign Out Sign Out Data: Sign Out Comment: EE-paranoid, delusional schizophrenia, HI ETOH, on ciwa pending second certification mg, k repleted Last updated by Michelle Jo PA at 02/14/24 00:15 Sign Out Comment: Untreated schizophrenia with homicidal ideation has been in the ED and is pending second certification. Last updated by Feroz Espinoza MD at 02/14/24 06:53 Sign Out Comment: Untreated schizophrenia with homicidal ideation EE, awaiting 2nd certification required restraint last night but has been fine all day pending placement . Last updated by Emani Armendariz MD at 02/14/24 17:10 Discharge Plan Discharge Details Chief Complaint: PsychEval Clinical Impression: Schizophrenia, Homicidal ideation, Alcohol abuse, Hallucination Primary Care Provider: Yoandy Barahona ED Provider: Hammad Sampson Home Meds and New Rx's Prescriptions: No Action No Known Home Meds
[2024-02-14] MEDS: Haloperidol 5 MG TAB PO (20:26)
--- NOTE | 2024-02-14 22:08 | ED.PROG_ITS ---
Date of service: 02/14/24 Time of Service: 22:08 Medical Decision Making This patient was signed out to me. Please see previous notes for H&P and initial eval. In brief, 33yo M with decompensated schizophrenia, EEd and 2nd cert done. Medically cleared, pending placement. Standing haldol ordered. Pt refusing electrolyte replacement. Overnight no acute events, appeared to be resting comfortably. Will be signed out to oncoming physician; plan remains as above. Quality:SDOH Health Related Social Needs: No Data to Display Sign Out Sign Out Data: Sign Out Comment: EE-paranoid, delusional schizophrenia, HI ETOH, on ciwa pending second certification mg, k repleted Last updated by Michelle Jo PA at 02/14/24 00:15 Sign Out Comment: Untreated schizophrenia with homicidal ideation has been in the ED and is pending second certification. Last updated by Feroz Espinoza MD at 02/14/24 06:53 Sign Out Comment: Untreated schizophrenia with homicidal ideation EE, awaiting 2nd certification required restraint last night but has been fine all day p ending placement . Last updated by Emani Armendariz MD at 02/14/24 17:10 Sign Out Comment: decompensated schizophrenia, EE and second cert done, no issues during shift Last updated by Hammad Sampson MD at 02/14/24 19:47 Discharge Plan Discharge Details Chief Complaint: PsychEval Clinical Impression: Schizophrenia, Homicidal ideation, Alcohol abuse, Hallucination Primary Care Provider: Yoandy Barahona ED Provider: Deja Monae Home Meds and New Rx's Prescriptions: No Action No Known Home Meds
[2024-02-15] MEDS: Haloperidol 5 MG TAB PO (07:51)
--- NOTE | 2024-02-15 09:47 | W.EDPROG ---
Date of service: 02/15/24 Time of Service: 09:48 Medical Decision Making Patient was signed out to me pending placement. Patient has been stable throughout my shift. No interventions needed. We did get a call from [facility] and I spoke with Cherry Ramirez, she accepts patient for transport and transfer. I have extensively reviewed the treatment plan with the patient. I have addressed all patient concerns at this time. I have also discussed the plan with the admitting physician and they agree with the current assessment and plan and have agreed to assume responsibility for the patient. All parties demonstrate verbal understanding and agreement with our assessment and plan at this time. The documentation in this chart was dictated using [employer] dictation software. Please excuse any dictation errors. Quality:SDOH Health Related Social Needs: No Data to Display Sign Out Sign Out Data: Sign Out Comment: EE-paranoid, delusional schizophrenia, HI ETOH, on ciwa pending second certification mg, k repleted Last updated by Michelle Jo PA at 02/14/24 00:15 Sign Out Comment: Untreated schizophrenia with homicidal ideation has been in the ED and is pending second certification. Last updated by Feroz Espinoza MD at 02/14/24 06:53 Sign Out Comment: Untreated schizophrenia with homicidal ideation EE, awaiting 2nd certification required restraint last night but has been fine all day pending placement . Last updated by Emani Armendariz MD at 02/14/24 17:10 Sign Out Comment: decompensated schizophrenia, EE and second cert done, no issues during shift Last updated by Hammad Sampson MD at 02/14/24 19:47 Sign Out Comment: Decomp schizophrenia, EE done, 2nd cert done, pending placement Last updated by Deja Monae MD at 02/15/24 07:25 Discharge Plan Disposition Patient Disposition: Psychiatric Hospital/Unit Specific Psychiatric Facility: [facility] Condition: Stable Discharge Details Chief Complaint: PsychEval Clinical Impression: Schizophrenia, Homicidal ideation, Alcohol abuse, Hallucination, Transaminitis Primary Care Provider: Yoandy Barahona ED Provider: Manny Rojas Home Meds and New Rx's Prescriptions: No Action No Known Home Meds
[2024-02-15 09:54] VITALS: BP 141/84; PULSE 87; RESP 13; TEMP 36.7; O2SAT 99
--- NOTE | 2024-02-15 11:38 | CMSP_ITS ---
Date of service: 02/15/24 Time of Service: 11:38 Care Management Safety Plan Status Status: Involuntary Reason for Wait Reason for Wait: Inpatient Admission Safety Plan Safety Plan: INVOLUNTARY FOR INPATIENT PSYCHIATRIC STABILIZATION.? Patient is appropriate in all interactions since arriving at [facility]; Pt has demonstrated appropriate coping and communication skills, has articulated his or her needs and concerns and is fully engaged during staff interactions. Safety plan has been established with patient, and care team, to adhere to patient goals, identify restrictions based on behavioral status, address nutrition, and determine allowed personal belongings, tools for hygiene and personal care. Determine level of activity including ambulation, level of supervision, visitors, and determine privileges based on behaviors and level of engagement by pt. SAFETY PLAN: 1. Will remain on suicide precautions, in paper clothes 2. Will remain in Zone B under direct supervision of one-on-one staff at all times provided by [employer]; VICENTE, TUCKING MACHINE OPERATOR information director. 3. May have paper cups, plates, finger foods as well as a cardboard spoon with which to eat meals. 4. Follow [facility] Management of the Admitted Behavioral Health Patient policy. 5. Shower available in Zone B without restriction. 6. Personal belongings-soft items permitted at RN discretion. 7. Visitors- parents; at RN discretion. 8. Activities: soft cart items approved per RN discretion. 9.? Bathroom available in Zone B without restriction. 10. Phone: limited to [facility] cordless phone at RN discretion. Due to INVOLUNTARY status, patient is being held at [facility] by the Department of Mental Health ([facility]) until 2nd certification by [facility] Psychiatrist can be performed (within 24 hours). Staff will provide de-escalation support (CPI) as needed. If patient wishes to leave [facility], staff will contact [facility] Crisis Screener ([phone]) and Moisture Meter Operator ([phone]) as soon as possible. In the event of elopement, notify [place] [employer] ([phone]). Patient is currently involuntarily at [facility]. [facility] Frontline Rn Utilization Management Um will continue seeking placement. Please contact the Moisture Meter Operator for any needed changes to Safety Plan. Safety plan has been provided to interdepartmental care team. Patient will be transported by [employer] at time of discharge.
[2024-02-15] MEDS: diazePAM 5 MG TAB PO (11:42)
--- NOTE | 2024-02-15 12:23 | PDOC.CMPRO ---
Date of service: 02/15/24 Time of Service: 12:23 Care Management Progress Note Progress Note Text Progress Note Text: CM met with staff in zone B to discuss the plan of care for Jose. Per RN, Jose has been cooperative; he has been pacing throughout the unit and mumbling to himself. He has been eating, but not full meals, per report, and has slept ok overnight. Jose has been accepted
[2024-02-15] MEDS: diazePAM 5 MG TAB 10 MG PO (14:47)
[2024-02-15 18:31] VITALS: BP 141/84; PULSE 87; RESP 13; TEMP 36.7; O2SAT 99
[2024-02-15 18:51] LABS: Hepatitis A Antibody IgM Negative (Negative); Hepatitis B Core Antibody Negative (Negative); Hepatitis B surface Ag Negative (Negative); Hepatitis C Ab w Rflx HCV PCR Negative (Negative)
== END 2024-02-15 18:38 ==
PROVIDERS: Physician Assistant; Emergency Provider Student in an Organized Health Care Education/Training Program; PCP Nurse Practitioner Family
DX: F20.9 Schizophrenia, unspecified (principal); F10.10 Alcohol abuse, uncomplicated; R00.0 Tachycardia, unspecified; F17.210 Nicotine dependence, cigarettes, uncomplicated
CPT/HCPCS: 00123; 36415; 80053; 80307; 86704; 86709; 86803; 87340; 93005; 96372; 99285; 80320; 80329; 81003; 83735; 85025; 93010; J1630; J2250